=== PATIENT | female | born 1950 | race Caucasian/White ===

== ENCOUNTER 2021-08-04 08:21 | Outpatient (CLI) | payer MEDICARE, OTHER, SELFPAY ==
[2021-08-04 09:25] LABS: Hemoglobin A1C 6.5 % (<5.7)
[2021-08-04 09:34] LABS: Cholesterol 203 mg/dL (0-200); HDL Direct 39 mg/dL (40-60); LDL Cholesterol Calculated 149 mg/dL (<130); Triglycerides 75 mg/dL (0-150)
== END 2021-08-04 08:22 | disposition home or self-care (01) ==
LOC: CHSLAB 08:30
PROVIDERS: PCP Family Medicine
DX: E11.9 Type 2 diabetes mellitus without complications (principal); E78.01 Familial hypercholesterolemia
CPT/HCPCS: 36415; 80061; 83036

== ENCOUNTER 2023-11-22 09:08 | Outpatient (CLI) | payer MEDICARE, SELFPAY ==
[2023-11-22 09:33] LABS: Hematocrit 36.2 % (35.0-42.0); Mean Corpuscular HGB Conc 30.4 g/dL (32-36); Mean Corpuscular Hemoglobin 26.5 pg (27.0-31.0); Mean Corpuscular Volume 87.2 fL (78.0-102.0); Mean Platelet Volume 8.9 fl (9.2-11.8); Platelet Count Result 297 K/mm3 (150-420); Red Blood Count 4.15 M/mm3 (4.20-5.40); Red Cell Distribution Width 14.8 % (11.6-14.4); White Blood Count 6.3 K/mm3 (4.8-10.8)
[2023-11-22 09:52] LABS: Hemoglobin A1C 6.5 % (<5.7)
[2023-11-22 09:53] LABS: Creatinine Urine 294.58 mg/dL (40-278); MALB Creatinine Ratio 29.6 mg/g (0-30); Microalbumin Urine Random 87.4 mg/L
[2023-11-22 10:12] LABS: Alanine Aminotransferase 42 U/L (14-59); Albumin Level 3.3 g/dL (3.4-5.0); Alkaline Phosphatase 83 U/L (46-116); Anion Gap 9 mmol/L (4-12); Aspartate Amino Transferase 43 U/L (15-37); Bilirubin,Total 0.3 mg/dL (0.00-1.00); Blood Urea Nitrogen 26 mg/dL (7-18); Calcium 9.6 mg/dL (8.5-10.1); Carbon Dioxide 26 mmol/L (21-32); Chloride 105 mmol/L (98-108); Cholesterol 328 mg/dL (0-200); Estimated Glomerular Filt Rate 39; Glucose 112 mg/dL (70-99); HDL Direct 34 mg/dL (40-60); LDL Cholesterol Calculated 244 mg/dL (<130); Osmolality Calculated 295 mOsm/kg (285-295); Potassium 5.5 mmol/L (3.5-5.1); Sodium 140 mmol/L (136-145); Triglycerides 250 mg/dL (0-150)
[2023-11-22 10:24] LABS: Thyroid Stimulating Hormone Reflex 5.31 u/IU/mL (0.36-3.74)
[2023-11-22 10:40] LABS: Free T4 Free Thyroxine Reflex 0.89 ng/dL (0.76-1.46)
== END 2023-11-22 09:09 | disposition home or self-care (01) ==
LOC: CHSLAB 09:12
DX: E11.42 Type 2 diabetes mellitus with diabetic polyneuropathy (principal); E78.2 Mixed hyperlipidemia; E11.29 Type 2 diabetes mellitus with other diabetic kidney complication; R80.9 Proteinuria, unspecified; Z79.4 Long term (current) use of insulin
CPT/HCPCS: 36415; 80053; 80061; 82043; 83036; 84439; 84443; 85025; 85027

== ENCOUNTER 2024-04-17 16:21 | Inpatient (IN) | payer MEDICARE, SELFPAY ==
--- NOTE | ~2024-04-17 | XR_ITS ---
EXAMINATION: XR_CERV2-3V_CR DATE: 04/21/2024 11:29 INDICATION: Neck pain. Fall. TECHNIQUE: 4 views of cervical spine were obtained. COMPARISON: None. FINDINGS: Alignment is normal. Vertebral body heights are normal. There is mildly decreased disc heig ht at C4-C5, C5-C6, and C6-C7. 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 No central canal stenosis or prevertebral soft tissue swelling. IMPRESSION: 1. Mild cervical spondylosis. Reviewed, dictated and finalized at location A.
--- NOTE | ~2024-04-17 | XR_ITS ---
EXAMINATION: XR knee RT 3V DATE: 04/24/2024 08:21 INDICATION: Right knee pain and swelling. TECHNIQUE: 3 views of right knee were obtained. COMPARISON: None. FINDINGS: Alignment is normal. No fracture. There is an intramedullary laurie in the femur with distal i nterlocking screw. There is moderate osteoarthritis of medial compartment and mild osteoarthritis of lateral and patellofemoral compartments. No knee joint effusion. IMPRESSION: 1. Moderate right knee osteoarthritis. Reviewed, dictated and finalized at location A.
--- NOTE | 2024-04-17 17:00 | PC.NURSE ---
Patient arrived on unit from [facility] in transport van. Patient arrived to unit in w/c accompanied by nurse and patient's . Patient orientated to room, use of call light, safety measures, use of bed controls, visiting hours, activation of rapid response and general hospital policies. Patient voices understaning.
[2024-04-17 17:07] VITALS: BP 137/54; PULSE 77; RESP 18; TEMP 36.3; O2SAT 94; BMI 37.0
[2024-04-17] MEDS: BUDESONIDE/FORMOTEROL 80/4.5 MCG 6.9 GM INHALER (*SP) 2 PUFF INHALATION (20:35)
[2024-04-17] MEDS: MIRTAZAPINE 15 MG TABLET PO (20:36)
[2024-04-17] MEDS: LOSARTAN POTASSIUM 50 MG TABLET 100 MG PO (20:36)
[2024-04-17] MEDS: SENNA/DOCUSATE SODIUM TABLET 1 TAB PO (20:36)
[2024-04-17 20:40] LABS: Glucose Point of Care 133 mg/dl (65-105)
[2024-04-17] MEDS: HYDROcodone/acetaminophen (*CRX) 5-325 MG TABLET 1 TAB PO (21:18)
[2024-04-18] VITALS: BP 178/71; PULSE 63; RESP 17; TEMP 36.2; O2SAT 97
[2024-04-18] MEDS: HYDROcodone/acetaminophen (*CRX) 5-325 MG TABLET 1 TAB PO ×5 (01:02→13:44)
[2024-04-18] MEDS: BUDESONIDE/FORMOTEROL 80/4.5 MCG 6.9 GM INHALER (*SP) 2 PUFF INHALATION ×2 (05:42→17:51)
[2024-04-18 07:52] LABS: Glucose Point of Care 88 mg/dl (65-105)
[2024-04-18 07:55] LABS: Hematocrit 25.1 % (35.0-42.0); Mean Corpuscular HGB Conc 31.9 g/dL (32-36); Mean Corpuscular Hemoglobin 28.2 pg (27.0-31.0); Mean Corpuscular Volume 88.4 fL (78.0-102.0); Mean Platelet Volume 9.1 fl (9.2-11.8); Platelet Count Result 256 K/mm3 (150-420); Red Blood Count 2.84 M/mm3 (4.20-5.40); White Blood Count 10.2 K/mm3 (4.8-10.8)
[2024-04-18 08:00] VITALS: BP 135/56; PULSE 59; RESP 14; TEMP 35.8; O2SAT 96
[2024-04-18] MEDS: ENOXAPARIN 40 MG/0.4 ML SYRINGE SUB-Q (09:13)
[2024-04-18] MEDS: FLUoxetine HCL 20 MG CAPSULE 40 MG PO (09:13)
[2024-04-18] MEDS: CHOLECALCIFEROL 1,000 UNITS TABLET 1000 UNITS PO (09:13)
[2024-04-18] MEDS: CYANOCOBALAMIN 1,000 MCG TABLET 1000 MCG BY MOUTH (09:13)
[2024-04-18] MEDS: ASPIRIN 81 MG CHEWABLE TABLET PO (09:14)
[2024-04-18] MEDS: LEVOTHYROXINE SODIUM 50 MCG TABLET PO (09:14)
[2024-04-18] MEDS: amLODIPine BESYLATE 5 MG TABLET PO (09:14)
[2024-04-18 12:08] LABS: Glucose Point of Care 117 mg/dl (65-105)
--- NOTE | 2024-04-18 15:57 | PM.IMHP ---
H&P: HPI History of Present Illness Date/Time: 04/18/24 15:57 Chief Complaint: weakness, deconditioning Narrative: This is a 74-year-old female with a past medical history significant for breast cancer status post double mastectomy on oral chemotherapy, diabetes type 2, hypertension, hyperlipidemia, and anxiety who presented to [facility] for swing bed services. The patient provides the following history. Last Saturday she was out to dinner with her family when she stood up and fell to the floor. She immediately had right hip pain and 911 was called. She was taken to [facility] in [facility] and found to have a right intratrochanteric fracture. She underwent right hip long CM nail on 04/[address] North. stay was complicated by acute hypoxic respiratory failure likely secondary to an asthma exacerbation versus pulmonary hypertension. She was eventually able to be weaned to room air and discharged for further PT and OT given deconditioning, weakness, and impaired immobility. On exam today she is seen in the chair and appears uncomfortable. She states she is having pain to her right leg to the right of her knee. Her current pain medication helps but it does not last. She denies headache, dizziness, chest pain, abdominal pain, nausea, vomiting, diarrhea, or constipation. She does have shortness of breath chronically which she has been experiencing for the last 2-3 months. She does not normally wear oxygen at home and currently is not requiring oxygen. Review of Systems Review of Systems: shortness a breath, right hip pain All systems reviewed & are unremarkable except as noted in HPI and below PMFSH Past Medical History Medical History (Updated 04/18/24 @ 16:29 by Katia Rao APRN) Breast cancer Closed right hip fracture Diabetes type 2, controlled Hyperlipidemia Hypertension Osteopenia Pulmonary hypertension Surgical History Surgical History H/O mastectomy History of hysterectomy History of repair of hiatal hernia Hx of tonsillectomy Family History Family History Other Diabetes mellitus Heart disease Social History Social History (Updated 04/18/24 @ 16:16 by Katia Rao APRN) Social History: patient lives at home with her Jacob Deleon who is her emergency contact. She has 2 children, 1 is from breast cancer. She has helped to raise her 2 grandchildren 1 being a freshman in college and the other a freshman in high school. She lives here in [facility]. Smoking status: Never smoker Second hand tobacco smoke exposure: No Alcohol intake: former Substance use: never Substance use type: does not use Do You Feel Safe in your Home?: Yes Lack of Transportation: No Lack of Food: Never True Current Housing: I Have Housing Concerned About Future Housing: No Difficulty Paying Gas/Electric Bills: No Difficulty Paying for Meds: YES Currently Unemployed: No Education: Master's Degree or Higher Difficulty w/ Childcare or Family Care: No Living arrangements: with family Spiritual care concerns: No Meds Home Medications and Allergies Home Medications Medication Instructions Recorded Confirmed Type amlodipine 5 mg tablet 5 mg PO DAILY 04/17/24 04/17/24 History aspirin 81 mg tablet 81 mg PO DAILY 04/17/24 04/17/24 History budesonide-formoterol HFA 80 2 puff inhalation Q12H 04/17/24 04/17/24 History mcg-4.5 mcg/actuation aerosol inhaler cholecalciferol (vitamin D3) 25 25 mcg PO DAILY 04/17/24 04/17/24 History mcg (1,000 unit) tablet cyanocobalamin (vitamin B-12) 1,000 mcg sublingual DAILY 04/17/24 04/17/24 History 1,000 mcg sublingual tablet enoxaparin 40 mg/0.4 mL 40 mg subcut DAILY 04/17/24 04/17/24 History subcutaneous syringe (Lovenox) fluoxetine 40 mg capsule 40 mg
[2024-04-18 16:30] VITALS: BP 126/56; PULSE 64; RESP 16; TEMP 36.1; O2SAT 94
[2024-04-18 16:51] LABS: Glucose Point of Care 123 mg/dl (65-105)
[2024-04-18] MEDS: HYDROcodone/acetaminophen (*CRX) 5-325 MG TABLET PO (17:49)
[2024-04-18] MEDS: LOSARTAN POTASSIUM 50 MG TABLET 100 MG PO (20:24)
[2024-04-18] MEDS: MIRTAZAPINE 15 MG TABLET PO (20:24)
[2024-04-18] MEDS: SENNA/DOCUSATE SODIUM TABLET 1 TAB PO (20:24)
[2024-04-18 20:41] LABS: Glucose Point of Care 127 mg/dl (65-105)
[2024-04-19] VITALS: BP 141/60; PULSE 69; RESP 18; TEMP 35.8; O2SAT 94
[2024-04-19] MEDS: HYDROcodone/acetaminophen (*CRX) 5-325 MG TABLET PO ×4 (05:57→19:22)
[2024-04-19] MEDS: LEVOTHYROXINE SODIUM 50 MCG TABLET PO (05:57)
[2024-04-19] MEDS: BUDESONIDE/FORMOTEROL 80/4.5 MCG 6.9 GM INHALER (*SP) 2 PUFF INHALATION ×2 (05:59→18:13)
[2024-04-19 07:53] LABS: Glucose Point of Care 131 mg/dl (65-105)
[2024-04-19 08:00] VITALS: BP 141/60; PULSE 66; RESP 14; TEMP 36.4; O2SAT 92
[2024-04-19] MEDS: ENOXAPARIN 40 MG/0.4 ML SYRINGE SUB-Q (09:06)
[2024-04-19] MEDS: FLUoxetine HCL 20 MG CAPSULE 40 MG PO (09:07)
[2024-04-19] MEDS: CHOLECALCIFEROL 1,000 UNITS TABLET 1000 UNITS PO (09:07)
[2024-04-19] MEDS: ASPIRIN 81 MG CHEWABLE TABLET PO (09:07)
[2024-04-19] MEDS: amLODIPine BESYLATE 5 MG TABLET PO (09:07)
[2024-04-19] MEDS: LETROZOLE (*CHEMO) 2.5 MG TABLET PO (09:09)
[2024-04-19] MEDS: CYANOCOBALAMIN 1,000 MCG TABLET 1000 MCG BY MOUTH (09:25)
[2024-04-19 12:02] LABS: Glucose Point of Care 144 mg/dl (65-105)
[2024-04-19 16:45] VITALS: BP 128/56; PULSE 78; RESP 16; TEMP 36.4; O2SAT 93
[2024-04-19 17:13] LABS: Glucose Point of Care 112 mg/dl (65-105)
[2024-04-19] MEDS: CYCLOBENZAPRINE HCL 10 MG TABLET PO (20:49)
[2024-04-19] MEDS: MIRTAZAPINE 15 MG TABLET PO (20:49)
[2024-04-19] MEDS: LOSARTAN POTASSIUM 50 MG TABLET 100 MG PO (20:49)
[2024-04-19] MEDS: SENNA/DOCUSATE SODIUM TABLET 1 TAB PO (20:49)
[2024-04-19 21:18] LABS: Glucose Point of Care 180 mg/dl (65-105)
[2024-04-19 23:47] VITALS: BP 149/56; PULSE 70; RESP 18; TEMP 36.5; O2SAT 93
[2024-04-20] MEDS: HYDROcodone/acetaminophen (*CRX) 5-325 MG TABLET PO ×5 (04:16→22:37)
[2024-04-20] MEDS: LEVOTHYROXINE SODIUM 50 MCG TABLET PO (06:00)
[2024-04-20] MEDS: BUDESONIDE/FORMOTEROL 80/4.5 MCG 6.9 GM INHALER (*SP) 2 PUFF INHALATION ×2 (06:00→18:20)
[2024-04-20 07:00] LABS: Hematocrit 27.2 % (35.0-42.0); Hemoglobin 8.6 g/dL (11.7-13.8); Mean Corpuscular HGB Conc 31.6 g/dL (32-36); Mean Corpuscular Hemoglobin 28.7 pg (27.0-31.0); Mean Corpuscular Volume 90.7 fL (78.0-102.0); Mean Platelet Volume 9.2 fl (9.2-11.8); Platelet Count Result 300 K/mm3 (150-420); Red Cell Distribution Width 16.1 % (11.6-14.4); White Blood Count 9.4 K/mm3 (4.8-10.8)
[2024-04-20 07:21] LABS: Alanine Aminotransferase 48 U/L (14-59); Albumin Level 2.9 g/dL (3.4-5.0); Alkaline Phosphatase 68 U/L (46-116); Anion Gap 4 mmol/L (4-12); Aspartate Amino Transferase 30 U/L (15-37); Bilirubin,Total 1.1 mg/dL (0.00-1.00); Blood Urea Nitrogen 20 mg/dL (7-18); Calcium 9.3 mg/dL (8.5-10.1); Carbon Dioxide 30 mmol/L (21-32); Chloride 104 mmol/L (98-108); Estimated CRCL calculation 44 ml/min; Estimated Glomerular Filt Rate 46; Glucose 122 mg/dL (70-99); Osmolality Calculated 289 mOsm/kg (285-295); Potassium 4.2 mmol/L (3.5-5.1); Sodium 138 mmol/L (136-145); Total Protein 6.7 g/dL (6.4-8.2)
[2024-04-20 07:50] LABS: Glucose Point of Care 127 mg/dl (65-105)
[2024-04-20 08:00] VITALS: BP 150/54; PULSE 72; RESP 14; TEMP 36.6; O2SAT 98
[2024-04-20] MEDS: amLODIPine BESYLATE 5 MG TABLET PO (08:55)
[2024-04-20] MEDS: ASPIRIN 81 MG CHEWABLE TABLET PO (08:55)
[2024-04-20] MEDS: CHOLECALCIFEROL 1,000 UNITS TABLET 1000 UNITS PO (08:55)
[2024-04-20] MEDS: FLUoxetine HCL 20 MG CAPSULE 40 MG PO (08:55)
[2024-04-20] MEDS: ENOXAPARIN 40 MG/0.4 ML SYRINGE SUB-Q (08:55)
[2024-04-20] MEDS: CYANOCOBALAMIN 1,000 MCG TABLET 1000 MCG BY MOUTH (08:56)
[2024-04-20] MEDS: LETROZOLE (*CHEMO) 2.5 MG TABLET PO (08:56)
--- NOTE | 2024-04-20 10:39 | PHAR ---
verified pt.'s home med letrozole 2.5mg tablet once daily. marked it as hazardous drug.
[2024-04-20 11:58] LABS: Glucose Point of Care 163 mg/dl (65-105)
[2024-04-20 16:00] VITALS: BP 129/54; PULSE 81; RESP 16; TEMP 36.5; O2SAT 95
[2024-04-20 16:59] LABS: Glucose Point of Care 111 mg/dl (65-105)
[2024-04-20] MEDS: MIRTAZAPINE 15 MG TABLET PO (20:26)
[2024-04-20] MEDS: SENNA/DOCUSATE SODIUM TABLET 1 TAB PO (20:27)
[2024-04-20] MEDS: LOSARTAN POTASSIUM 50 MG TABLET 100 MG PO (20:27)
[2024-04-20 20:36] LABS: Glucose Point of Care 145 mg/dl (65-105)
[2024-04-20] MEDS: CYCLOBENZAPRINE HCL 10 MG TABLET PO (22:38)
[2024-04-21] VITALS: BP 136/64; PULSE 87; RESP 18; TEMP 37.3; O2SAT 90
[2024-04-21] MEDS: LEVOTHYROXINE SODIUM 50 MCG TABLET PO (06:45)
[2024-04-21] MEDS: HYDROcodone/acetaminophen (*CRX) 5-325 MG TABLET PO ×4 (06:45→22:15)
[2024-04-21] MEDS: BUDESONIDE/FORMOTEROL 80/4.5 MCG 6.9 GM INHALER (*SP) 2 PUFF INHALATION ×2 (06:47→18:08)
[2024-04-21 07:28] LABS: Glucose Point of Care 110 mg/dl (65-105)
[2024-04-21 07:47] VITALS: BP 122/54; PULSE 70; RESP 16; TEMP 36; O2SAT 90
[2024-04-21] MEDS: ENOXAPARIN 40 MG/0.4 ML SYRINGE SUB-Q (08:48)
[2024-04-21] MEDS: LETROZOLE (*CHEMO) 2.5 MG TABLET PO (08:49)
[2024-04-21] MEDS: CHOLECALCIFEROL 1,000 UNITS TABLET 1000 UNITS PO (08:50)
[2024-04-21] MEDS: FLUoxetine HCL 20 MG CAPSULE 40 MG PO (08:50)
[2024-04-21] MEDS: amLODIPine BESYLATE 5 MG TABLET PO (08:51)
[2024-04-21] MEDS: ASPIRIN 81 MG CHEWABLE TABLET PO (08:51)
[2024-04-21] MEDS: CYANOCOBALAMIN 1,000 MCG TABLET 1000 MCG BY MOUTH (08:51)
--- NOTE | 2024-04-21 10:32 | PM.EVENT ---
Event Note Event Note Event Note: Patient complaining of neck or uper back neck pain . Not sure if its from the fall but it is hurting when she turns her head. I will place an xray order and if negative we will order a lidocaine patch.
[2024-04-21 11:49] LABS: Glucose Point of Care 92 mg/dl (65-105)
--- NOTE | 2024-04-21 12:44 | P.PNCROSS_ITS ---
Event Note Event Note Event Note: Patient has poor endurance and high risk for fall due to dementia and would carli efit from the use of Walker to help with abnormal gait and balance.
[2024-04-21] MEDS: CYCLOBENZAPRINE HCL 10 MG TABLET PO ×2 (13:03→22:15)
[2024-04-21 16:00] VITALS: BP 133/61; PULSE 80; RESP 18; TEMP 36.2; O2SAT 96
--- NOTE | 2024-04-21 18:50 | PC.NURSE ---
assumed care. report received from amanda tony
[2024-04-21] MEDS: SENNA/DOCUSATE SODIUM TABLET 1 TAB PO (20:31)
[2024-04-21] MEDS: MIRTAZAPINE 15 MG TABLET PO (20:31)
[2024-04-21] MEDS: LOSARTAN POTASSIUM 50 MG TABLET 100 MG PO (20:31)
--- NOTE | 2024-04-21 23:58 | PC.NURSE ---
Sleeping with no signs of distress. BiPap tubing lying on patient chest.
[2024-04-22] VITALS: BP 125/55; PULSE 72; RESP 16; TEMP 35.9; O2SAT 96
--- NOTE | 2024-04-22 02:11 | PC.NURSE ---
Up to BSC; Incontinent of urine into underwear and on floor. Housekeeping notified and cleaned floor. New safety socks provided.
[2024-04-22] MEDS: HYDROcodone/acetaminophen (*CRX) 5-325 MG TABLET PO ×4 (02:20→20:55)
--- NOTE | 2024-04-22 02:20 | PC.NURSE ---
Given fresh ice pack; applied to R posterior hip area.
[2024-04-22] MEDS: BUDESONIDE/FORMOTEROL 80/4.5 MCG 6.9 GM INHALER (*SP) 2 PUFF INHALATION ×2 (06:13→18:40)
[2024-04-22] MEDS: LEVOTHYROXINE SODIUM 50 MCG TABLET PO (06:14)
--- NOTE | 2024-04-22 06:36 | PC.NURSE ---
Up to BSC, explained to patient that she will be walking to bathroom as determined by PT. patient is agreeable. Walked to recliner with steady gait with walker and standby assist of one. Positioned in recliner with legs elevated and warm blanket provided. Given call light, water and cell phone.
[2024-04-22 08:00] VITALS: BP 135/50; PULSE 78; RESP 14; TEMP 36.4; O2SAT 96
[2024-04-22] MEDS: CYANOCOBALAMIN 1,000 MCG TABLET 1000 MCG BY MOUTH (08:51)
[2024-04-22] MEDS: FLUoxetine HCL 20 MG CAPSULE 40 MG PO (08:51)
[2024-04-22] MEDS: CHOLECALCIFEROL 1,000 UNITS TABLET 1000 UNITS PO (08:51)
[2024-04-22] MEDS: LETROZOLE (*CHEMO) 2.5 MG TABLET PO (08:51)
[2024-04-22] MEDS: ASPIRIN 81 MG CHEWABLE TABLET PO (08:52)
[2024-04-22] MEDS: ENOXAPARIN 40 MG/0.4 ML SYRINGE SUB-Q (08:52)
[2024-04-22] MEDS: amLODIPine BESYLATE 5 MG TABLET PO (08:52)
--- NOTE | 2024-04-22 10:04 | PM.EVENT ---
Event Note Event Note Event Note: reviewed patient xray and she has no acute process. patient will utilize patch.
[2024-04-22] MEDS: LIDOCAINE 5% PATCH 1 PATCH TRANSDERM (11:19)
[2024-04-22 16:00] VITALS: BP 134/74; PULSE 78; RESP 29; TEMP 36.1; O2SAT 92
[2024-04-22] MEDS: CYCLOBENZAPRINE HCL 10 MG TABLET PO (17:12)
[2024-04-22] MEDS: MIRTAZAPINE 15 MG TABLET PO (20:54)
[2024-04-22] MEDS: SENNA/DOCUSATE SODIUM TABLET 1 TAB PO (20:54)
[2024-04-22] MEDS: LOSARTAN POTASSIUM 50 MG TABLET 100 MG PO (20:54)
[2024-04-23] VITALS: BP 128/57; PULSE 91; RESP 16; TEMP 36.4; O2SAT 93
[2024-04-23] MEDS: HYDROcodone/acetaminophen (*CRX) 5-325 MG TABLET PO ×4 (05:40→20:44)
[2024-04-23] MEDS: BUDESONIDE/FORMOTEROL 80/4.5 MCG 6.9 GM INHALER (*SP) 2 PUFF INHALATION ×2 (05:41→17:12)
[2024-04-23] MEDS: LEVOTHYROXINE SODIUM 50 MCG TABLET PO (05:41)
[2024-04-23 08:00] VITALS: BP 114/53; PULSE 75; RESP 14; TEMP 36.6; O2SAT 96
[2024-04-23] MEDS: LIDOCAINE 5% PATCH 1 PATCH TRANSDERM (08:55)
[2024-04-23] MEDS: ENOXAPARIN 40 MG/0.4 ML SYRINGE SUB-Q (08:56)
[2024-04-23] MEDS: CYANOCOBALAMIN 1,000 MCG TABLET 1000 MCG BY MOUTH (08:56)
[2024-04-23] MEDS: CHOLECALCIFEROL 1,000 UNITS TABLET 1000 UNITS PO (08:56)
[2024-04-23] MEDS: FLUoxetine HCL 20 MG CAPSULE 40 MG PO (08:56)
[2024-04-23] MEDS: ASPIRIN 81 MG CHEWABLE TABLET PO (08:57)
[2024-04-23] MEDS: amLODIPine BESYLATE 5 MG TABLET PO (08:57)
[2024-04-23] MEDS: LETROZOLE (*CHEMO) 2.5 MG TABLET PO (08:57)
--- NOTE | 2024-04-23 09:09 | PM.EVENT ---
Event Note Event Note Event Note: Patient with no complaints up in chair doing well and neck pain improved with lidocaine patch
--- NOTE | 2024-04-23 09:59 | P.PNCROSS_ITS ---
Event Note Event Note Event Note: (1) Closed right hip fracture: Code(s): S72.001A - Fracture of unspecified part of neck of right femur, initial encounter for closed fracture Patient is a 74-year-old female who had initially been admitted to [facility] bed for rehabilitation and continued PT OT. Patient continues to improve however still with unsteady gait and pain with movement following a fracture to right femur. At this time it is my recommendation that the patient would benefit from a walker at home to continue her physical therapy and rehabilitation due to unsteady gait and balance and to reduce patient risk of falls after returning home.
[2024-04-23] MEDS: CYCLOBENZAPRINE HCL 10 MG TABLET PO ×2 (10:18→20:44)
[2024-04-23 16:30] VITALS: BP 107/73; PULSE 78; RESP 16; TEMP 36.3; O2SAT 96
[2024-04-23] MEDS: LOSARTAN POTASSIUM 50 MG TABLET 100 MG PO (20:44)
[2024-04-23] MEDS: MIRTAZAPINE 15 MG TABLET PO (20:44)
[2024-04-23] MEDS: SENNA/DOCUSATE SODIUM TABLET 1 TAB PO (20:45)
[2024-04-24] VITALS: BP 112/91; PULSE 84; RESP 16; TEMP 36.4; O2SAT 94
[2024-04-24] MEDS: LEVOTHYROXINE SODIUM 50 MCG TABLET PO (05:59)
[2024-04-24] MEDS: HYDROcodone/acetaminophen (*CRX) 5-325 MG TABLET PO ×4 (05:59→20:23)
[2024-04-24] MEDS: BUDESONIDE/FORMOTEROL 80/4.5 MCG 6.9 GM INHALER (*SP) 2 PUFF INHALATION ×2 (05:59→18:03)
[2024-04-24 08:00] VITALS: BP 123/52; PULSE 75; RESP 14; TEMP 36.4; O2SAT 96
[2024-04-24] MEDS: ENOXAPARIN 40 MG/0.4 ML SYRINGE SUB-Q (09:20)
[2024-04-24] MEDS: amLODIPine BESYLATE 5 MG TABLET PO (09:21)
[2024-04-24] MEDS: CHOLECALCIFEROL 1,000 UNITS TABLET 1000 UNITS PO (09:21)
[2024-04-24] MEDS: ASPIRIN 81 MG CHEWABLE TABLET PO (09:21)
[2024-04-24] MEDS: FLUoxetine HCL 20 MG CAPSULE 40 MG PO (09:21)
[2024-04-24] MEDS: LIDOCAINE 5% PATCH 1 PATCH TRANSDERM (09:21)
[2024-04-24] MEDS: CYANOCOBALAMIN 1,000 MCG TABLET 1000 MCG BY MOUTH (09:21)
[2024-04-24] MEDS: LETROZOLE (*CHEMO) 2.5 MG TABLET PO (09:22)
--- NOTE | 2024-04-24 14:21 | PM.EVENT ---
Event Note Event Note Event Note: Patient reported RT knee pain after working with physical therapy yesterday and states she felt a pop. XRAY ordered that showed osteoarthritis. Encouraged RICE and pain control as needed.
[2024-04-24 16:35] VITALS: BP 121/55; PULSE 81; RESP 16; TEMP 36.7; O2SAT 92
[2024-04-24 19:57] VITALS: BP 108/57; PULSE 88; RESP 18; TEMP 36.8; O2SAT 95
[2024-04-24] MEDS: LOSARTAN POTASSIUM 50 MG TABLET 100 MG PO (20:24)
[2024-04-24] MEDS: SENNA/DOCUSATE SODIUM TABLET 1 TAB PO (20:24)
[2024-04-24] MEDS: MIRTAZAPINE 15 MG TABLET PO (20:24)
[2024-04-25] MEDS: HYDROcodone/acetaminophen (*CRX) 5-325 MG TABLET PO ×6 (00:32→21:28)
[2024-04-25 05:27] LABS: Hematocrit 25.7 % (35.0-42.0); Hemoglobin 7.8 g/dL (11.7-13.8); Mean Corpuscular HGB Conc 30.4 g/dL (32-36); Mean Corpuscular Hemoglobin 28.1 pg (27.0-31.0); Mean Corpuscular Volume 92.4 fL (78.0-102.0); Mean Platelet Volume 8.9 fl (9.2-11.8); Platelet Count Result 252 K/mm3 (150-420); Red Blood Count 2.78 M/mm3 (4.20-5.40); Red Cell Distribution Width 16.9 % (11.6-14.4); White Blood Count 6.2 K/mm3 (4.8-10.8)
[2024-04-25 05:40] LABS: Alanine Aminotransferase 30 U/L (14-59); Albumin Level 2.8 g/dL (3.4-5.0); Alkaline Phosphatase 75 U/L (46-116); Anion Gap 6 mmol/L (4-12); Aspartate Amino Transferase 25 U/L (15-37); Bilirubin,Total 0.6 mg/dL (0.00-1.00); Blood Urea Nitrogen 29 mg/dL (7-18); Calcium 9.6 mg/dL (8.5-10.1); Carbon Dioxide 29 mmol/L (21-32); Chloride 102 mmol/L (98-108); Estimated CRCL calculation 38 ml/min; Estimated Glomerular Filt Rate 39; Glucose 115 mg/dL (70-99); Osmolality Calculated 290 mOsm/kg (285-295); Sodium 137 mmol/L (136-145); Total Protein 6.9 g/dL (6.4-8.2)
[2024-04-25] MEDS: LEVOTHYROXINE SODIUM 50 MCG TABLET PO (06:25)
[2024-04-25] MEDS: BUDESONIDE/FORMOTEROL 80/4.5 MCG 6.9 GM INHALER (*SP) 2 PUFF INHALATION ×2 (06:25→18:06)
[2024-04-25 08:00] VITALS: BP 116/62; PULSE 86; RESP 18; TEMP 36.6; O2SAT 95
--- NOTE | 2024-04-25 08:03 | P.PNIM_ITS ---
Progress Note: A&P Assessment and Plan (1) Closed right hip fracture: Code(s): S72.001A - Fracture of unspecified part of neck of right femur, initial encounter for closed fracture Status: Acute Assessment and Plan: * patient sustained a right hip fracture after standing up at dinner and falling to the ground. She was transferred to [facility] and underwent IM nail on 04/11. She is sent to [facility] for swing bed for continued PT and OT due to deconditioning, weakness, and gait training. * Incision is covered with to Mepilex dressings clean dry and intact. Change dressing every 3 days or as needed for drainage. * DVT prophylaxis with Lovenox daily for 25 days * pain control with oxycodone 5-10 mg every 4 hours as needed for pain. * Flexeril 10 mg t.i.d. as needed for muscle spasm * bowel regimen with senna daily and MiraLax p.r.n. * patient needs to follow-up with Dr. North by 05/01 * PT OT ordered and recs are appreciated 04/25/24: * Continues to improve with current treatment plan (2) Osteoarthritis of right knee: Code(s): M17.11 - Unilateral primary osteoarthritis, right knee Status: Acute Assessment and Plan: * RT Knee pain * XRAY showed osteoarthritis * added Voltaren * continue with PT/OT (3) Constipation: Code(s): K59.00 - Constipation, unspecified Status: Acute Assessment and Plan: * No BM 3 days * likely secondary to narcotics * Currently on Colace and senna tab as well as MiraLax p.r.n. * added lactulose until patient has BM then can discontinue * encouraged ambulation in hydration (4) Hypertension: Code(s): I10 - Essential (primary) hypertension Status: Acute Assessment and Plan: * history of high blood pressure for which patient takes amlodipine 5 mg daily, losartan 100 mg daily * blood pressures reviewed and are within desired limits * continue home antihypertensives * echocardiogram performed at [facility] showed normal LV diastolic and systolic function with an EF estimated at 68.1% and trace tricuspid regurgitation. Non con CT of the chest showed pattern concerning for advanced pulmonary hypertension including prominent enlargement of pulmonary arteries as well as pulmonary veins. (5) Diabetes type 2, controlled: Code(s): E11.9 - Type 2 diabetes mellitus without complications Status: Acute Assessment and Plan: * Patient takes sitagliptin 50 mg daily, hemoglobin A1c 6.5% in November of 2023 * arnulfo Mccabeu-Chepaige, hypoglycemia protocol * high-dose SSI * patient has not required sliding scale insulin since admission * diabetic diet (6) Breast cancer: Code(s): C50.919 - Malignant neoplasm of unspecified site of unspecified female breast Status: Acute Assessment and Plan: * patient has a history of breast cancer with a double mastectomy completed in August of this year. she recently started oral chemotherapy letrozole 2.5 mg daily. * Medication is
--- NOTE | 2024-04-25 08:03 | PM.IMPN ---
Progress Note: A&P Assessment and Plan (1) Closed right hip fracture: Code(s): S72.001A - Fracture of unspecified part of neck of right femur, initial encounter for closed fracture Status: Acute Assessment and Plan: patient sustained a right hip fracture after standing up at dinner and falling to the ground. She was transferred to [facility] and underwent IM nail on 04/11. She is sent to [facility] for swing bed for continued PT and OT due to deconditioning, weakness, and gait training. Incision is covered with to Mepilex dressings clean dry and intact. Change dressing every 3 days or as needed for drainage. DVT prophylaxis with Lovenox daily for 25 days pain control with oxycodone 5-10 mg every 4 hours as needed for pain. Flexeril 10 mg t.i.d. as needed for muscle spasm bowel regimen with senna daily and MiraLax p.r.n. patient needs to follow-up with Dr. North by 05/01 PT OT ordered and recs are appreciated 04/25/24: Continues to improve with current treatment plan (2) Osteoarthritis of right knee: Code(s): M17.11 - Unilateral primary osteoarthritis, right knee Status: Acute Assessment and Plan: RT Knee pain XRAY showed osteoarthritis added Voltaren continue with PT/OT (3) Constipation: Code(s): K59.00 - Constipation, unspecified Status: Acute Assessment and Plan: No BM 3 days likely secondary to narcotics Currently on Colace and senna tab as well as MiraLax p.r.n. added lactulose until patient has BM then can discontinue encouraged ambulation in hydration (4) Hypertension: Code(s): I10 - Essential (primary) hypertension Status: Acute Assessment and Plan: history of high blood pressure for which patient takes amlodipine 5 mg daily, losartan 100 mg daily blood pressures reviewed and are within desired limits continue home antihypertensives echocardiogram performed at [place] showed normal LV diastolic and systolic function with an EF estimated at 68.1% and trace tricuspid regurgitation. Non con CT of the chest showed pattern concerning for advanced pulmonary hypertension including prominent enlargement of pulmonary arteries as well as pulmonary veins. (5) Diabetes type 2, controlled: Code(s): E11.9 - Type 2 diabetes mellitus without complications Status: Acute Assessment and Plan: Patient takes sitagliptin 50 mg daily, hemoglobin A1c 6.5% in November of 2023 a.c. HS Accu-Cheks, hypoglycemia protocol high-dose SSI patient has not required sliding scale insulin since admission diabetic diet (6) Breast cancer: Code(s): C50.919 - Malignant neoplasm of unspecified site of unspecified female breast Status: Acute Assessment and Plan: patient has a history of breast cancer with a double mastectomy completed in August of this year. she recently started oral chemotherapy letrozole 2.5 mg daily. Medication is non formulary. her is bringing in this medication. Okay to resume when available. (7) Asthma: Code(s): J45.909 - Unspecified asthma, uncomplicated Status: Acute Assessment and Plan: patient takes budesonide -formoterol 2 b.i.d. she had hypoxic respiratory failure after surgery requiring ICU stay with oxygen. Resume inhaler currently on room air BiPAP at night inspiratory pressure 14, EPAP 8. she was on these settings at [facility]. Likely has JOELLE will need outpatient sleep study. Plan Code status: Full code per patient DVT prophylaxis: Lovenox Stress ulcer prophylaxis: NA PT/OT notes: Swing Bed Disposition: patient continues admission to [facility] swing bed for rehabilitation due to recent hospital admission and deconditioned state. Patient is slowly improving hopefully plan for discharge to home soon Time Spent With Patient T
[2024-04-25] MEDS: ENOXAPARIN 40 MG/0.4 ML SYRINGE SUB-Q (08:43)
[2024-04-25] MEDS: LIDOCAINE 5% PATCH 1 PATCH TRANSDERM (08:43)
[2024-04-25] MEDS: CYANOCOBALAMIN 1,000 MCG TABLET 1000 MCG BY MOUTH (08:44)
[2024-04-25] MEDS: CHOLECALCIFEROL 1,000 UNITS TABLET 1000 UNITS PO (08:44)
[2024-04-25] MEDS: amLODIPine BESYLATE 5 MG TABLET PO (08:44)
[2024-04-25] MEDS: ASPIRIN 81 MG CHEWABLE TABLET PO (08:44)
[2024-04-25] MEDS: FLUoxetine HCL 20 MG CAPSULE 40 MG PO (08:44)
[2024-04-25] MEDS: LETROZOLE (*CHEMO) 2.5 MG TABLET PO (08:47)
[2024-04-25] MEDS: LACTULOSE 20 GM/30 ML UDC PO ×2 (12:06→17:07)
[2024-04-25] MEDS: DICLOFENAC SODIUM 1% 100 GM GEL (*BKC) 1 APPLIC TOPICAL ×3 (12:06→21:28)
[2024-04-25] MEDS: CYCLOBENZAPRINE HCL 10 MG TABLET PO ×2 (15:25→23:38)
[2024-04-25 16:00] VITALS: BP 134/72; PULSE 84; RESP 18; TEMP 36.6; O2SAT 93
--- NOTE | 2024-04-25 19:14 | PC.NURSE ---
Patient had results from lactulose, order discontinued per VACUUM CASTER, patient states understanding.
[2024-04-25] MEDS: MIRTAZAPINE 15 MG TABLET PO (21:30)
[2024-04-25] MEDS: LOSARTAN POTASSIUM 50 MG TABLET 100 MG PO (21:30)
[2024-04-26] VITALS: BP 122/55; PULSE 78; RESP 16; TEMP 36.6; O2SAT 93
[2024-04-26] MEDS: BUDESONIDE/FORMOTEROL 80/4.5 MCG 6.9 GM INHALER (*SP) 2 PUFF INHALATION ×2 (06:32→17:36)
[2024-04-26] MEDS: HYDROcodone/acetaminophen (*CRX) 5-325 MG TABLET PO ×2 (06:33→20:08)
[2024-04-26] MEDS: LEVOTHYROXINE SODIUM 50 MCG TABLET PO (06:33)
[2024-04-26 08:00] VITALS: BP 125/49; PULSE 74; RESP 16; TEMP 36.4; O2SAT 96
[2024-04-26] MEDS: amLODIPine BESYLATE 5 MG TABLET PO (08:59)
[2024-04-26] MEDS: ASPIRIN 81 MG CHEWABLE TABLET PO (09:01)
[2024-04-26] MEDS: CHOLECALCIFEROL 1,000 UNITS TABLET 1000 UNITS PO (09:01)
[2024-04-26] MEDS: LIDOCAINE 5% PATCH 1 PATCH TRANSDERM (09:02)
[2024-04-26] MEDS: FLUoxetine HCL 20 MG CAPSULE 40 MG PO (09:02)
[2024-04-26] MEDS: ENOXAPARIN 40 MG/0.4 ML SYRINGE SUB-Q (09:02)
[2024-04-26] MEDS: CYANOCOBALAMIN 1,000 MCG TABLET 1000 MCG BY MOUTH (09:02)
[2024-04-26] MEDS: DICLOFENAC SODIUM 1% 100 GM GEL (*BKC) 1 APPLIC TOPICAL ×4 (09:04→20:08)
[2024-04-26] MEDS: LETROZOLE (*CHEMO) 2.5 MG TABLET PO (09:08)
[2024-04-26 16:00] VITALS: BP 139/52; PULSE 77; RESP 18; TEMP 36.6; O2SAT 94
[2024-04-26] MEDS: CYCLOBENZAPRINE HCL 10 MG TABLET PO (17:49)
[2024-04-26 20:00] VITALS: PULSE 77; RESP 18; O2SAT 94
[2024-04-26] MEDS: MIRTAZAPINE 15 MG TABLET PO (20:08)
[2024-04-26] MEDS: SENNA/DOCUSATE SODIUM TABLET 1 TAB PO (20:08)
[2024-04-26] MEDS: LOSARTAN POTASSIUM 50 MG TABLET 100 MG PO (20:08)
[2024-04-27] VITALS: BP 128/57; PULSE 85; RESP 17; TEMP 36.8; O2SAT 96
[2024-04-27] MEDS: HYDROcodone/acetaminophen (*CRX) 5-325 MG TABLET PO ×2 (03:47→08:54)
[2024-04-27] MEDS: CYCLOBENZAPRINE HCL 10 MG TABLET PO (03:47)
[2024-04-27] MEDS: BUDESONIDE/FORMOTEROL 80/4.5 MCG 6.9 GM INHALER (*SP) 2 PUFF INHALATION (05:46)
[2024-04-27] MEDS: LEVOTHYROXINE SODIUM 50 MCG TABLET PO (05:46)
[2024-04-27 07:50] VITALS: BP 140/59; PULSE 70; RESP 16; TEMP 35.7; O2SAT 97
[2024-04-27] MEDS: LIDOCAINE 5% PATCH 1 PATCH TRANSDERM (08:54)
[2024-04-27] MEDS: ENOXAPARIN 40 MG/0.4 ML SYRINGE SUB-Q (08:54)
[2024-04-27] MEDS: FLUoxetine HCL 20 MG CAPSULE 40 MG PO (08:55)
[2024-04-27] MEDS: CYANOCOBALAMIN 1,000 MCG TABLET 1000 MCG BY MOUTH (08:55)
[2024-04-27] MEDS: amLODIPine BESYLATE 5 MG TABLET PO (08:55)
[2024-04-27] MEDS: DICLOFENAC SODIUM 1% 100 GM GEL (*BKC) 1 APPLIC TOPICAL (08:56)
[2024-04-27] MEDS: CHOLECALCIFEROL 1,000 UNITS TABLET 1000 UNITS PO (08:56)
[2024-04-27] MEDS: ASPIRIN 81 MG CHEWABLE TABLET PO (08:56)
[2024-04-27] MEDS: LETROZOLE (*CHEMO) 2.5 MG TABLET PO (08:56)
--- NOTE | 2024-04-27 09:22 | PM.DS ---
DS: Admitting Diagnosis Discharge Date 04/27/2024 Admitting Diagnosis Post repair of right hip fracture/ rehabilitation DS: Discharge Diagnosis Discharge Diagnosis (1) Closed right hip fracture: Code(s): S72.001A - Fracture of unspecified part of neck of right femur, initial encounter for closed fracture Status: Acute (2) Osteoarthritis of right knee: Code(s): M17.11 - Unilateral primary osteoarthritis, right knee Status: Acute (3) Constipation: Code(s): K59.00 - Constipation, unspecified Status: Acute (4) Hypertension: Code(s): I10 - Essential (primary) hypertension Status: Acute (5) Diabetes type 2, controlled: Code(s): E11.9 - Type 2 diabetes mellitus without complications Status: Acute (6) Breast cancer: Code(s): C50.919 - Malignant neoplasm of unspecified site of unspecified female breast Status: Acute (7) Asthma: Code(s): J45.909 - Unspecified asthma, uncomplicated Status: Acute Plan Disposition: patient discharged home with home health DS: Summary Hospital Course Reason for hospitalization: Post repair of right hip fracture/ rehabilitation Hospital Course: patient was a 74-year-old female who was admitted to [facility] for continued rehabilitation post repair of right hip fracture. Patient was provided pain control with pain medications and lidocaine patches. she over overall had improvement with PT/OT. patient at time of discharge still requiring the use of a walker but able to perform some of her own ADLs. Patient did report her is at home and will assist with care. Patient was prescribed Lovenox injections she will need 15 more doses education was provided at bedside. patient's labs and vitals were stable during admission however patient did have complaints of right knee pain knee x-ray showed osteoarthritis and she was prescribed Voltaren topical. patient with anemia likely secondary to and expected from a right hip fracture patient asymptomatic but did recommend a follow-up with primary for a CBC and to monitor for any signs of bleeding while on the Lovenox shots. patient discharged home with encouraged ambulation and therapy exercises. Status at Discharge Functional status at discharge: uses cane/walker Overall status at discharge: patient is progressing back to baseline Time Spent with Patient Time attestation: Total time spent providing and/or coordinating discharge services: Time spent: Greater than 30 minutes Exam Narrative: GENERAL: Alert and oriented x 3. No acute distress. EYES: EOMI. No scleral icterus. PERRLA. HEENT: Moist mucous membranes. LUNGS: Clear to auscultation bilaterally. No accessory muscle use. CARDIOVASCULAR: Regular rate and rhythm. No murmur. No JVD. S1-S2 ABDOMEN: Soft, non tenderness and non-distended. No palpable masses. EXTREMITIES: No edema. Non-tender Mild Tenderness to RT knee SKIN: No rashes or lesions. Skin warm, dry. NEUROLOGIC: No focal neurological deficits. CN II-XII grossly intact PSYCHIATRIC: Appropriate mood and affect. Good judgement and insight. No visual or auditory hallucinations. No suicidal or homicidal ideation. Discharge Plan Discharge Attending physician on discharge: Franko Woodward Discharging Clinician: Savannah Haynes Anticipated Discharge Date/Time: 04/27/24 09:05 Patient Disposition: Home, Self-Care Activity: may shower, as tolerated and other - see discharge instructions Diet: heart healthy Discharge Instructions: Per Care Coordination: You have a follow up with Dr. North (ortho) on April 28 at 8:[address] North is located at the [facility] ([facility] [place], [place]) and their phone number is [phone]. You were prescribed Lovenox injections instructions and education attached. Teaching was provided at bedside prior t
--- NOTE | 2024-04-27 10:20 | PC.NURSE ---
Patient discharging home. All belongings gathered together and sent home with patient. Walker delivered to patient saturday and sent home with patient today. All discharge instructions and education reviewed with patient. Patient denies any questions. Patient left floor via wheelchair accompanied by this nurse. Left via private vehicle with .
--- NOTE | 2024-04-28 13:14 | PC.NURSE ---
Discharge call back attempted, no answer
--- NOTE | 2024-04-30 09:34 | PC.NURSE ---
Discharge call back attempted no answer
--- NOTE | 2024-05-04 08:57 | PC.NURSE ---
Discharge call back completed, doing well, no questions regarding dc instructions
== END 2024-04-27 10:20 | disposition home or self-care (01) | DRG 561 ==
PROVIDERS: Nurse Practitioner Acute Care; Admitting Provider Internal Medicine; PCP Family Medicine; Visit Provider Nurse Practitioner Family
DX: S72.001D Fracture of unspecified part of neck of right femur, subsequent encounter for closed fracture with routine healing (principal); C50.919 Malignant neoplasm of unspecified site of unspecified female breast; I10 Essential (primary) hypertension; I27.20 Pulmonary hypertension, unspecified; E78.5 Hyperlipidemia, unspecified; E11.9 Type 2 diabetes mellitus without complications; D64.9 Anemia, unspecified; J45.909 Unspecified asthma, uncomplicated; K59.03 Drug induced constipation; T40.605A Adverse effect of unspecified narcotics, initial encounter; M17.11 Unilateral primary osteoarthritis, right knee; M85.80 Other specified disorders of bone density and structure, unspecified site; F03.90 Unspecified dementia, unspecified severity, without behavioral disturbance, psychotic disturbance, mood disturbance, and anxiety; F41.9 Anxiety disorder, unspecified; Z79.82 Long term (current) use of aspirin; Z91.81 History of falling
CPT/HCPCS: 36415; 72040; 73562; 80053; 82948; 85027; 97110; 97161; 97165; 97530; 97535; A9270; J1650

== ENCOUNTER 2024-08-10 12:53 | Outpatient (RCR) | payer MEDICARE, SELFPAY ==
--- NOTE | 2024-08-10 15:12 | PTOPEVAL1 ---
Assessment and note entered by [facility] Evaluation Information Assessment Status Evaluation ICD-10 Condition Codes (PT) Abnormalities of gait and mobility R26.9,Weakness R53.1 Other ICD-10 Condition Codes ( Z87.81 PT) Subjective Information Pt reports she attempted to stand up from a barstool and fell on 04/10/24 and broke her femur. She had ORIF of the R femur and R TKA in March, and an additional surgery in June 2024 to get a screw replaced. She reports she's functionally declined since this happened and has been confined to her chair. She has been using a wheeled walker for ambulation since surgery. She is able to go up/down her stairs at home to access her bedroom and bathroom. Is not currently driving but states that her doctor told her that clearance to drive is up to PT discretion. She denies pain this date but reports an increase in pain when she tries to stand or move around too much. Also reports feeling like her R leg is shorter since surgery. Reported Pain Level Pain Score 0,0: Self Report Assessment PT Clinical Summary Mrs. Deleon is a 74 year old female presenting to physical therapy for rehabilitation for R femur fracture and R TKA following a fall in March 2024. She demonstrates significantly impaired hip and knee strength and ROM and gait deficits causing functional decline and difficulty walking. She will benefit from skilled therapy services to improve on these deficits to allow her to perform regular functional mobility tasks and ADLs without difficulty. Plan of Care Interventions Electrical Stimulation,Gait Training,Hot Pack/Cold Pack,Intermittent Compression Pump,Manual Therapy ,Neuro Re-education,Patient/Caregiver Education, Therapeutic Activities,Therapeutic Exercise,Self- Care/Home Management PT Services Indicated Yes Treatment Frequency and 2x/week for 12 visits Duration These treatments will address the objective and functional deficits as defined above. The patient will be advanced safely and appropriately in order for the patient to progress towards his/her prior level of function. Additional exercises will be introduced and as well as a comprehensive home exercise program upon discharge, if needed, ?to ensure carryover of functional gains achieved in the clinic. This treatment plan has been reviewed and agreement upon by the patient.
--- NOTE | 2024-08-10 15:12 | OPREHPOC ---
Outpatient Therapy Plan of Care This is a Multidisciplinary Plan of Care that may contain components documented by all disciplines (PT, OT, and ST.) PT Problem 1 PT Problem #1 Knowledge Deficit PT Goal 1 Goal / Goal Update Pt to be independent with HEP. Target Visit 2 PT Problem 2 PT Problem #2 Impaired Range of Motion PT Goal 1 Goal / Goal Update Pt to improve R hip flexion AROM to 100. Pt to improve R hip flexion AROM to 100 to be able to get out of a chair without difficulty. Pt to reach 0 degrees R knee extension AROM. Pt to reach 0 degrees R knee extension AROM to improve gait mechanics. Target Visit 12 PT Problem 3 PT Problem #3 Impaired Strength PT Goal 1 Goal / Goal Update Pt to improve R hip flexion strength to 3+/5. Pt to improve R hip flexion strength to 3+/5 to improve limb clearance when ambulating. Pt to improve R knee extension strength to 5/5. Pt to improve R knee extension strength to 5/5 to improve stair climbing. Target Visit 12 PT Problem 4 PT Problem #4 Impaired Gait PT Goal 1 Goal / Goal Update Pt to demonstrate adequate heel strike during ambulation. Pt to improve 6WMT distance to 800ft in for efficient ambulation in the home and community. Target Visit 12
--- NOTE | 2024-09-02 14:53 | OPREHPOC ---
Outpatient Therapy Plan of Care This is a Multidisciplinary Plan of Care that may contain components documented by all disciplines (PT, OT, and ST.) PT Problem 1 PT Problem #1 Knowledge Deficit PT Goal 1 Goal / Goal Update Pt to be independent with HEP. Target Visit 2 Progress Met PT Problem 2 PT Problem #2 Impaired Range of Motion PT Goal 1 Goal / Goal Update Pt to improve R hip flexion AROM to 100. Pt to improve R hip flexion AROM to 100 to be able to get out of a chair without difficulty. Pt to reach 0 degrees R knee extension AROM. Pt to reach 0 degrees R knee extension AROM to improve gait mechanics. Target Visit 12 Progress Not Met PT Problem 3 PT Problem #3 Impaired Strength PT Goal 1 Goal / Goal Update Pt to improve R hip flexion strength to 3+/5. Pt to improve R hip flexion strength to 3+/5 to improve limb clearance when ambulating. Pt to improve R knee extension strength to 5/5. Pt to improve R knee extension strength to 5/5 to improve stair climbing. Target Visit 12 Progress Not Met PT Problem 4 PT Problem #4 Impaired Gait PT Goal 1 Goal / Goal Update Pt to demonstrate adequate heel strike during ambulation. Pt to improve 6WMT distance to 800ft in for efficient ambulation in the home and community. Target Visit 12 Progress Not Met
--- NOTE | 2024-09-02 14:53 | PTOPPROG ---
Assessment and note entered by Yeny Armando, PT Evaluation Information Assessment Status Progress Diagnosis s/p R femur fracture and TKA ICD-10 Condition Codes (PT) Abnormalities of gait and mobility R26.9,Weakness R53.1 Other ICD-10 Condition Codes ( Z87.81 PT) Onset 04/10/24 Subjective Information Katy Deleon reports her right knee and hip still have pain intermittently depending on what she is doing. She is noting stiffness today. She is still using her walker and notes she limps if she tries to walk without an AD. She also is not able to drive, walk grocery store distances, or perform hand packer. Assessment PT Clinical Summary Katy Deleon has completed 10 skilled PT visits for a right femur fracture. She is reporting ongoing difficulty walking without an AD, performing hand packer, and grocery shopping. She objectively demonstrates improving ROM at the right hip and knee, improving gait, improving strength, and improving balance. She continues to have defiicits in these areas though and has not met meterman goals. She will continue to benefit from skilled PT to further address these limitations. Plan of Care Interventions Hot Pack/Cold Pack,Patient/Caregiver Education, Therapeutic Activities,Therapeutic Exercise PT Services Indicated Yes Treatment Frequency and Continue skilled PT for 2 visits per original POC Duration These treatments will address the objective and functional deficits as defined above. The patient will be advanced safely and appropriately in order for the patient to progress towards his/her prior level of function. Additional exercises will be introduced and as well as a comprehensive home exercise program upon discharge, if needed, ?to ensure carryover of functional gains achieved in the clinic. This treatment plan has been reviewed and agreement upon by the patient.
--- NOTE | 2024-09-14 12:43 | PTOPDC ---
Assessment and note entered by Luisito Boswell Evaluation Information Assessment Status Discharge Diagnosis s/p right femur fracture and TKA ICD-10 Condition Codes (PT) Abnormalities of gait and mobility R26.9,Weakness R53.1 Other ICD-10 Condition Codes ( Z87.81 PT) Onset 04/10/24 Subjective Information Pt. reports she has returned to driving. She states that she is strictly using her cane for all activities. She states that pain is mild as of recently. She reports she is continuing to exercise at home and is ready for discharge at this time. Reported Pain Level Pain Score 0,2: Self Report Assessment PT Clinical Summary Pt. demonstrates excellent progress in regards to strength and gait efficiency. She continues to present with weakness and still has not met the goals at initial evaluation, however is progressing well. At this time she has a comprehensive HEP and appears motivated to continue to exercise. She was given additional written instruction on this date and will be discharged from our care. Plan of Care PT Services Indicated No
== END 2024-09-14 15:00 | disposition home or self-care (01) ==
LOC: CHSPT 12:53
DX: R53.1 Weakness (principal); Z87.81 Personal history of (healed) traumatic fracture
CPT/HCPCS: 97110; 97112; 97140; 97161; 97530; 97750

== ENCOUNTER 2025-04-23 08:26 | Outpatient (CLI) | payer MEDICARE, SELFPAY ==
--- OUTSIDE RECORDS SUMMARY | 2018-02-25 | XMS_ITS | Encounter Summary ---
Author Organization [facility] Healthcare Address [address] [place] [address] Care Team Providers Care Training Assistant Name Role Phone Guillermo Thomas MD Primary Care Provider [phone] Reason for Visit * Diagnostic Imaging (Routine) - Closed Specialty Diagnoses / Procedures Referred By Savannah lucio Referred To Contact Procedures Breast Imaging Screening Outside Reference Aft, Toya Anthony MD PhD [address] [place] [address] Phone: tel: fax: Referral ID Status Reason Start Date Expiration Date Visits Re quested Visits Authorized [id number] Closed 06/17/2023 07/16/2024 1 1 Encounter Details Date Type Department Care Team (Late st Contact Info) Description 02/25/2018 Hospital Encounter [facility] [address] [place] [address] [phone] Social History Tobacco Use Types Packs/Day Years [...] on file Legal Sex Female 12:40 AM GOLD PROSPECTOR Gender Identity Not on file Sexual Orientation Not on file documented as of this encounter Functional Status * AUDIT-C Score Answer Date of Assessment Author 1 12/19/2023 9:55 AM CDT My Paz RN * Question Answer Date of Assessment Author Q1: How often do you have a drink containing alcohol? Monthly or less 12/19/2023 9:55 AM CHESTERT My Paz RN Q2: How many drinks containing alcohol do you have on a typical day when you are drinking? Patient does not drink 06/22/2024 2:18 PM GOLD PROSPECTOR Karen Zhou CMA Q3: How often do you have six or more drinks on one occasion? Never 12/19/2023 9:55 AM CHESTERT My Paz RN documented as of this encounter Plan of Treatment Not on file documented as of this encounter Procedures Procedure Name Priority Date/Time Associated Diagnosis Comments BREAST IMAGING MG SCREENING OUTSIDE REFERENCE Routine 02/25/2018 12:00 AM CDT documented in this encounter Results * Breast Imaging Screening Outside Reference (02/25/2018 12:00 AM CDT) Impressions [facility] - 06/17/2023 10:02 AM GOLD PROSPECTOR These images are for Reference purposes only and have not been reviewed by [facility] Radiology. There will be no report generated by a [facility] Radiologist. Narrative [facility] - 06/17/2023 10:02 AM GOLD PROSPECTOR EXAMINATION: Images For Reference Purposes Only us Toya Coles MD PhD IMG MAMMO PROCEDURES Final Result [facility] documented in this encounter Visit Diagnoses Not on filedocumented in this encounter Care Teams Training Assistant Relationship Specialty Start Date End Date Guillermo Thomas MD PCP - General 04/04/17 11/14/22 documented as of this encounter
--- OUTSIDE RECORDS SUMMARY | 2020-03-24 | XMS_ITS | Encounter Summary ---
Author Organization [facility] Healthcare Address [address] [place] [address] Care Team Providers Care Certified Coder Name Role Phone Guillermo Thomas MD Primary Care Provider [phone] Reason for Visit * Diagnostic Imaging (Routine) - Closed Specialty Diagnoses / Procedures Referred By Savannah lucio Referred To Contact Procedures Breast Imaging Screening Outside Reference Aft, Toya Anthony MD PhD [address] [place] [address] Phone: tel: fax: Referral ID Status Reason Start Date Expiration Date Visits Re quested Visits Authorized [id number] Closed 06/17/2023 07/16/2024 1 1 Encounter Details Date Type Department Care Team (Late st Contact Info) Description 03/24/2020 Hospital Encounter [facility] [address] [place] [address] [phone] Social History Tobacco Use Types Packs/Day Years [...] on file Legal Sex Female 12:40 AM FISH CHECKER Gender Identity Not on file Sexual Orientation [...] Patient does not drink 06/22/2024 2:18 PM FISH CHECKER Karen Zhou CMA Q3: How often do [...] CDT) Impressions [facility] - 06/17/2023 10:04 AM FISH CHECKER These images are for Reference purposes only and have not been reviewed by [facility] Radiology. There will be no report generated by a [facility] Radiologist. Narrative [facility] - 06/17/2023 10:04 AM FISH CHECKER EXAMINATION: Images For Reference Purposes Only us Toya Coles MD PhD IMG MAMMO PROCEDURES Final Result [facility] documented in this encounter Visit Diagnoses Not on filedocumented in this encounter Care Teams Certified Coder Relationship Specialty Start Date End Date Guillermo Thomas MD PCP - General 04/04/17 11/14/22 documented as of this encounter
--- OUTSIDE RECORDS SUMMARY | 2025-04-23 08:34 | XMS_ITS | Clinical Summary ---
Author Organization [facility] Address [address] [place] [address] Care Team Providers Care Double Cut Sawyer Name Role Phone Jeanna Valdes MD Primary Care Provider [phone] AfToya lucio MD PhD Unavailable [phone] Weston Hager MD Unavailable Nitin Angeles MD Unavailable [phone] Allergies Active Allergy Reactions Criticality Noted Date Comments Penicillins Angioedema,Syncope,Rash High 11/22/2014 Reaction: Syncope, facial swelling, Medications albuterol HFA (PROVENTIL HFA,VENTOLIN HFA,PROAIR HFA) 90 mcg/actuation inhalerIndicati ons:Acute Asthma Attack Inhale 2 puffs every 6 (six) hours as needed for wheezing or shortness of breath 3 Active amLODIPine (NORVASC) 10 mg tabletIndicatio ns:hypertension Take 1 tablet (10 mg total) by mouth every morning 3 Active FLUoxetine (PROzac) 40 mg capsuleIndicati ons:depression Take 1 capsule (40 mg total) by mouth every morning 3 Active levothyroxine (SYNTHROID) 25 mcg tabletIndicatio ns:hypothyroidi sm Take 1 tablet (25 mcg total) 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 before breakfast 3 Active mirtazapine (REMERON) 15 mg tabletIndicatio ns:Insomnia Take 1 tablet (15 mg total) by mouth nightly as needed (to help sleep) 3 Active Januvia 50 mg tabletIndicatio ns:type 2 diabetes mellitus Take 1 tablet (50 mg total) by mouth every morning 3 Active blood glucose diagnostic (glucose blood) stripIndication s:type 2 diabetes mellitus 1 each by other route every other day 2 Active aspirin 81 mg chewable tabletIndicatio ns:primary prevention of coronary heart disease, asked her to start taking Take 1 tablet (81 mg total) by mouth every morning 2 Active cholecalciferol 25 mcg (1,000 unit) tabletIndicatio ns:Vitamin D Deficiency Take 1 tablet (1,000 Units total) by mouth daily 2 Active cyanocobalamin (Vitamin B-12) 1,000 mcg sublingual tabletIndicatio ns:Prevention of Vitamin B12 Deficiency Take 1 tablet (1,000 mcg total) by mouth every morning 2 Active hydroCHLOROthia zide (HYDRODIURIL) 12.5 mg tabletIndicatio ns:Edema Take 1 tablet (12.5 mg total) by mouth daily as needed 0 Active losartan (COZAAR) 100 mg tabletIndicatio ns:hypertension Take 1 tablet (100 mg total) by mouth every morning 1 Active omega-3 fatty acids-fish oil 300-1,000 mg capsuleIndicati ons:hypercholes terolemia Take 1 capsule (1 g total) by mouth every morning Active acetaminophen 500 mg capsule Take 2 capsules (1,000 mg total) by mouth every 8 (eight) hours as needed for pain 30 tablet 4 Active docusate sodium (COLACE) 100 mg capsuleIndicati ons:constipatio n Take 1 capsule (100 mg total) by mouth 2 (two) times a day as needed for constipation 14 capsule 4 Active evolocumab (REPATHA PUSHTRONEX SUBQ) Inject under the skin Active ergocalciferol (VITAMIN D) 50,000 unit capsuleIndicati ons:Malignant neoplasm of right female breast, unspecified estrogen receptor status, unspecified site of breast (HCC) Take 1 capsule (50,000 Units total) by mouth once a week 4 capsule 2 4 Active FLUoxetine (PROzac) 60 mg tablet 4 Active budesonide-form oteroL (Symbicort) 80-4.5 mcg/actuation inhalerIndicati ons:Maintenance Therapy for Asthma Inhale 2 puffs 2 (two) times a day Rinse mouth with water after use. Do not swallow. 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 08/13/2024 Osteopenia 08/13/2024 Wound infection after surgery 11/14/2023 Malignant neoplasm of female breast 09/10/2023 Dyspnea on exertion 06/27/2023 Malignant neoplasm of right female breast 2022 Cancer Staging:Clinical:Stage IB(cT1c(4), cN1, cM0, G2, ER+, SC+, HER2-, Oncotype DX score: 4) - Signed by Kevon Huang MD on 12/15/2023 Asthma, persistent not controlled 12/21/2022 Wheezing Encounters Date Type Department Care Team Description 04/13/2025 Telephone [facility] [address] [place] [address] 8 [place] [address] Nitin Angeles MD 04/13/20[facility] [address] [place] [address] 8 [place] [address] Nitin Angeles MD 04/09/2025 [facility] [address] [place] [address] 8 [place] [address] Nitin Angeles MD 04/08/2025 12:00 PM CDT Infusion [facility] - Infusion [address] [facility] [address] [place] [address] Malignant neoplasm of right female breast, unspecified estrogen receptor status, unspecified site of breast (HCC) (Primary Dx); Osteopenia, unspecified location; detention (current) use of aromatase inhibitors 04/08/2025 11:30 AM CDT Clinical Support [facility] - Lab Collection [address] [place] [address] 5 [place] [address] Hypercalcemia 04/08/2025 10:40 AM CDT Office Visit [facility] [address] [place] [address] 8 [place] [address] Nitin Angeles MD Malignant neoplasm of right female breast, unspecified estrogen receptor status, unspecified site of breast (HCC) (Primary Dx); Osteopenia, unspecified location; detention (current) use of aromatase inhibitors; Hypercalcemia 04/08/2025 9:45 AM CDT Lab [facility] - Lab Collection [address] [place] [address] Osteopenia, unspecified location; detention (current) use of aromatase inhibitors; Malignant neoplasm of right female breast, unspecified estrogen receptor status, unspecified site of breast (HCC) 01/29/2025 Telephone [facility] [address] [place] [phone] Nitin Angeles MD 01/29/2025 Results Follow-Up [facility] Oncology [address] [place] [phone] Nitin Angeles MD Comprehensive metabolic panel, eGFR 01/28/2025 1:30 PM CDT Lab [facility] - Lab Collection [address] [place] [address] Malignant neoplasm of right female breast, unspecified estrogen receptor status, unspecified site of breast (HCC) from Last 3 Months Immunizations Immunization Administration Dates Next Due Influenza, Quadrivalent, Hig h Dose, Preservative Free, Intrr 05/16/2022,04/12/2021 Influenza, Quadrivalent, Split, Intramuscular ,06/12/2016 Influenza, Trivalent, IM (MDV) 04/14/2012 Pneumococcal Conjugate PCV 13 06/12/2016 Pneumococcal Polysaccharide PPV23 02/21/2021 Surgical History Surgery Date Site/Laterality Comments US GUIDED BIOPSY LYMPH NODE SUPERFICIAL LEFT 07/04/2023 N/A COLONOSCOPY 04/28/2021 COLONOSCOPY WITH COLD BX performed by Yogi Eddy MD at [facility] OR TONSILLECTOMY 07/15/1954 - 07/14/1955 HYSTERECTOMY 07/15/1991 - 07/14/1992 HIATAL HERNIA REPAIR Over 10 years ago BREAST SOFT TISSUE MARKER PLACEMENT LEFT 08/07/2023 Right BREAST BIOPSY 05/22/2023 Right BREAST BIOPSY 05/22/2023 Right Medical History Medical History Date Comments Diabetes Hypertension Sleep apnea Rash 07/17/2023 Under breasts an d both axilla (pt states from yeast infection and that [place] is aware of this) Delayed emergence from gener al anesthesia Breast cancer (HCC) Type 2 diabetes mellitus Family History Medical History Relation Name Comments Heart disease Brother Breast cancer Daughter Cancer Daughter Heart disease Father Heart disease Mother Heart disease Sister Relation Name Status Comments Brother Daughter Alive Father Mother Sister Social History Tobacco Use Types Packs/Day Years Used Date Smoking Tobacco: Never Passive Smoke Exposure: Past Smokeless Tobacco: Never Tobacco Cessation:Counseling Given: Not Answered Passive Exposure Comments:Dad smoked Alcohol Use Standard Drinks/Week Comments Not [...] on file 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 Gender Identity Not on file Sexual Orientation Not on file Obstetrics History Last Filed Vital Signs Vital Sign Reading Time Taken Comments Blood Pressure 113/72 04/08/2025 9:56 AM CDT Pulse 82 04/08/2025 9:56 AM CDT Temperature 36.3 C (97.4 F) 04/08/2025 9:56 AM CDT Respiratory Rate 16 04/08/2025 9:56 AM CDT Oxygen Saturation 95% 04/08/2025 9:56 AM CDT Inhaled Oxygen Concentration - - Weight 92.1 kg (203 lb) 04/08/2025 9:56 AM CDT Height 160.2 cm (5' 3.07) 04/08/2025 9:56 AM CD T Body Mass Index 35.88 04/08/2025 9:56 AM CDT Plan of Treatment Health Maintenance Due Date Last Done Comments Depression Screening 1950 Hepatitis C Screening 1950 DTaP/Tdap/Td Vaccine (1 - Tdap) 02/20/1960 Hepatitis B Screening 1967 Zoster Vaccine (1 of 2) 02/20/1968 Well Visit 65+ 2014 Fall Risk Assessment 12/18/2024 12/19/2023, 11/15/19 24 Covid-19 Vaccine ( - 2024-2 6 season) 2025 05/16/2022, 07/22/2021, 09/07/2020, Additional history exists Influenza Vaccine (#1) 2025 , 04/12/2021, 04/30/2019, Additional history exists Osteoporosis Screening-Bone Density Scan 12/25/2025 12/26/2023, 01/27/2021 Pneumococcal vaccine 65+ Completed 02/21/2021, 05/16 Breast Cancer Screening-Mammogram Discontinued 05/15/2023, 05/18/2021, 03/24/2020 Medical Devices Implanted Type Area Coupling Machine Operator Device Identifier Shelf Expiration Date Model / Serial / Lot B [employer] Magtrace Liquid Marker 10 Vial Carton [id number] - [id number] Implanted:Qty : 1 on 09/10/2023 by Aft, Toya Anthony MD PhD at [facility] Other - see comments Right: Breast [employer] 12/13/2024 [id number] / / [id number] Description:Magtrace Bard Peripheral Vascular Marker Breast Ring Shape Radiopaque Nitinol Ultracor Twirl [id number] - [id number] Implanted:Qty : 1 on 07/04/2023 at [facility] Right: Axilla Bard Peripheral Vascular [id number] [facility]17 / / B [employer] Marker Tissue Needle Delivery Spiral Capped Seed Radiopaque Engineering Mgr Stainless Steel Low Nickel Sentimag [id number] - [id number] Implanted:Qty : 1 on 08/07/2023 by Tammy Prado MD at [facility] Right: Axilla B [employer] [id number] 01/11/2027 [id number] Procedures Procedure Name Priority Date/Time Associated Diagnosis Comments PTH Routine 04/08/2025 11:34 AM CDT Hypercalcemia TSH STAT 04/08/2025 9:45 AM CDT Osteopenia, unspecified location detention (current) use of aromatase inhibitors Malignant neoplasm of right female breast, unspecified estrogen receptor status, unspecified site of breast (HCC) T4, FREE STAT 04/08/2025 9:45 AM CDT Osteopenia, unspecified location detention (current) use of aromatase inhibitors Malignant neoplasm of right female breast, unspecified estrogen receptor status, unspecified site of breast (HCC) EGFR STAT 04/08/2025 9:45 AM CDT Osteopenia, unspecified location detention (current) use of aromatase inhibitors Malignant neoplasm of right female breast, unspecified estrogen receptor status, unspecified site of breast (HCC) COMPREHENSIVE METABOLIC PANEL STAT 04/08/2025 9:45 AM CDT Osteopenia, unspecified location 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 Malignant neoplasm of right female breast, unspecified estrogen receptor status, unspecified site of breast (HCC) EGFR Routine 01/28/2025 1:07 PM CDT Malignant neoplasm of right female breast, unspecified estrogen receptor status, unspecified site of breast (HCC) COMPREHENSIVE METABOLIC PANEL Routine 01/28/2025 1:07 PM CDT Malignant neoplasm of right female breast, unspecified estrogen receptor status, unspecified site of breast (HCC) from Last 3 Months Results * (ABNORMAL) PTH (04/08/2025 11:34 AM CDT) PTH 98(H) 18 - 59 pg/mL Blood 04/08/2025 11:3 4 AM CDT 04/08/2025 12:34 PM CDT Nitin Angeles MD LAB BLOOD ORDERABLES Final Result Performing Organization Address City/State/[facility] Co de Phone Number [facility] Department [place] [address] * (ABNORMAL) eGFR (04/08/2025 9:45 AM CDT) eGFR 49(L) >=60 mL/min/1. 73 m2 Comment: Interpretive Data Reference Interval Normal >/= 90 mL/min/1.73m2 Mildly decreased* 60 - 89 mL/min/1.73m2 Mildly to moderately decreased 45 - 59 mL/min/1.73m2 Moderately to severely decreased 30 - 44 mL/min/1.73m2 Severely decreased 15 - 29 mL/min/1.73m2 Kidney Failure < 15 mL/min/1.73m2 *Relative to young adult level Estimated glomerular filtration rate is determined by the 2020 CKD-EPI equation recommended by the National Kidney Foundation (A Unifying Approach to GFR Estimation: Recommendations of the NKF-ASK Task Force on Reassessing the Inclusion of Race in Diagnosing Kidney Disease, JASN 2020). The CKD-EPI equation should not be used for patients with unstable renal function and has not been validated in children and those over 70. Current interpretive data was last reviewed 2021. Blood 04/08/2025 9:45 AM CDT 04/08/2025 9:47 AM CDT Nitin Angeles MD LAB BLOOD ORDERABLES Final Result Performing Organization Address City/State/[facility] Co de Phone Number [facility] [place] [address] * TSH (04/08/2025 9:45 AM CDT) [facility] Thyroid Stimulating Hormone 3.36 0.30 - 4.20 mcIUnit/mL Blood 04/08/2025 9:45 AM CDT 04/08/2025 9:47 AM CDT Nitin Angeles MD LAB BLOOD ORDERABLES Final Result Performing Organization Address [facility] Co de Phone Number [facility] [place] [address] * T4, free (04/08/2025 9:45 AM CDT) [facility] Free T4 1.00 0.90 - 1.70 ng/dL Blood 04/08/2025 9:45 AM CDT 04/08/2025 9:47 AM CDT Nitin Angeles MD LAB BLOOD ORDERABLES Final Result Performing Organization Address [facility] Co de Phone Number [facility] [place] [address] * (ABNORMAL) Comprehensive metabolic panel (04/08/2025 9:45 AM CDT) [facility] Sodium 142 135 - 145 mmol/L Potassium, pl 4.6 3.3 - 4.9 mmol/L [facility] Chloride 106 97 - 110 mmol/L [facility] CO2 23 22 - 32 mmol/L [facility] Anion gap 13 2 - 15 mmol/L [facility] BUN 21 6 - 25 mg/dL [facility] Creatinine 1.15(H) 0.60 - 1.10 mg/dL [facility] Glucose 101 70 - 199 mg/dL [facility] Comment: Interpretive Data Fasting glucose >/= 126 mg/dl is diagnostic for diabetes. Fasting is defined as no caloric intake for at least 8 hours. Fasting glucose between 100 mg/dl to 125 mg/dl is diagnostic of prediabetes. In a patient with classic symptoms of hyperglycemia or hyperglycemic crisis, a random glucose >/= 200 mg/dl is diagnostic for diabetes. In the absence of unequivocal hyperglycemia, results should be confirmed by repeat testing. The classification and Diagnosis of Diabetes Diabetes Care 2021; 46: S19-S40. Current interpretive data was last revised 2022. Calcium 10.7(H) 8.5 - 10.3 mg/dL [facility] Bilirubin, total 0.5 0.1 - 1.2 mg/dL [facility] Protein, pl 8.5 6.5 - 8.5 g/dL [facility] Albumin 4.3 3.5 - 5.0 g/dL [facility] Alk phos 108 40 - 130 Units/L [facility] ALT 23 7 - 45 Units/L [facility] AST 33 10 - 45 Units/[facility] Blood 04/08/2025 9:45 AM CDT 04/08/2025 9:47 AM CDT us iNtin Angeles MD LAB BLOOD ORDERABLES Final Result [facility] Department [place] [address] * (ABNORMAL) eGFR (01/28/2025 1:07 PM CDT) eGFR 49(L) >=60 mL/min/1. 73 m2 Comment: Interpretive Data Reference Interval Normal >/= 90 mL/min/1.73m2 Mildly decreased* 60 - 89 mL/min/1.73m2 Mildly to moderately decreased 45 - 59 mL/min/1.73m2 Moderately to severely decreased 30 - 44 mL/min/1.73m2 Severely decreased 15 - 29 mL/min/1.73m2 Kidney Failure < 15 mL/min/1.73m2 *Relative to young adult level Estimated glomerular filtration rate is determined by the 2020 CKD-EPI equation recommended by the National Kidney Foundation (A Unifying Approach to GFR Estimation: Recommendations of the NKF-ASK Task Force on Reassessing the Inclusion of Race in Diagnosing Kidney Disease, JASN 2020). The CKD-EPI equation should not be used for patients with unstable renal function and has not been validated in children and those over 70. Current interpretive data was last reviewed 2021. Blood 01/28/2025 1:07 PM CDT 01/28/2025 1:11 PM CDT us Nitin Angeles MD LAB BLOOD ORDERABLES Final Result [facility] Department [place] [address] * (ABNORMAL) Comprehensive metabolic panel (01/28/2025 1:07 PM CDT) Sodium 143 135 - 145 mmol/L Potassium, pl 4.2 3.3 - 4.9 mmol/L [facility] Chloride 107 97 - 110 mmol/L [facility] CO2 27 22 - 32 mmol/L [facility] Anion gap 9 2 - 15 mmol/L [facility] BUN 14 6 - 25 mg/dL [facility] Creatinine 1.17(H) 0.60 - 1.10 mg/dL [facility] Glucose 96 70 - 199 mg/dL [facility] Comment: Interpretive Data Fasting glucose >/= 126 mg/dl is diagnostic for diabetes. Fasting is defined as no caloric intake for at least 8 hours. Fasting glucose between 100 mg/dl to 125 mg/dl is diagnostic of prediabetes. In a patient with classic symptoms of hyperglycemia or hyperglycemic crisis, a random glucose >/= 200 mg/dl is diagnostic for diabetes. In the absence of unequivocal hyperglycemia, results should be confirmed by repeat testing. The classification and Diagnosis of Diabetes Diabetes Care 2021; 46: S19-S40. Current interpretive data was last revised 2022. Calcium 10.2 8.5 - 10.3 mg/dL [facility] Bilirubin, total 0.5 0.1 - 1.2 mg/dL [facility] Protein, pl 8.5 6.5 - 8.5 g/dL [facility] Albumin 4.3 3.5 - 5.0 g/dL [facility] Alk phos 116 40 - 130 Units/L [facility] ALT 33 7 - 45 Units/L [facility] AST 44 10 - 45 Units/L [facility] Blood 01/28/2025 1:07 PM CDT 01/28/2025 1:11 PM CDT Nitin Angeles MD LAB BLOOD ORDERABLES Final Result [facility] Department [place] [address] from Last 3 Months Insurance [facility] MEDICARE SUPPLEMENT MEDICARE MEDICARE [facility] MEDICARE SUPPLEMENT Advance Directives For more information, please contact: [phone] * Full Code (Latest Code Status on File) Date Activated Date Inactivated Comments 11/14/2023 9:22 PM 11/15/2023 5:54 PM * Full Code Date Activated Date Inactivated Comments 09/10/2023 1:59 PM 09/11/2023 4:21 PM Care Teams Double Cut Sawyer Relationship Specialty Start Date End Date Jeanna Valdes MD [address] [place] [address] PCP - General Family Medicine 11/15/22 Toya Coles MD PhD [address] [place] [address] Surgeon Surgical Oncology 09/11/23 Weston Hager MD [address] [facility] [address] [place] [address] Radiation Oncologist Radiation Oncology 12/19/23 Nitin Angeles MD [address] [place] [address] Medical Oncologist/Wind Turbine Controls Engineer Medical Oncology 12/19/23
--- OUTSIDE RECORDS SUMMARY | 2025-04-23 08:34 | XMS_ITS | Clinical Summary ---
Author Organization [facility] Address [address] [place] [address] Care Team Providers Care Punch Press Operator Name Role Phone Jeanna Valdes MD Primary Care Provider [phone] Allergies Active Allergy Reactions Criticality Noted Date Comments Penicillin V Rash High 11/22/2014 Penicillins Rash,Syncope Low 03/25/2020 Medications FLUoxetine 40 MG capsule Take 1 capsule (40 mg total) by mouth daily. Active amLODIPine 5 MG tablet Take 1 tablet (5 mg total) by mouth daily. Active losartan 100 MG tablet Take 1 tablet (100 mg total) by mouth nightly at bedtime. Active Cyanocobalamin (VITAMIN B-12) 1000 MCG SL TabIndications:Ty pe 2 diabetes mellitus with diabetic polyneuropathy, without long-term current use of insulin ([facility]) Place 1 tablet under the tongue daily. 90 tablet Active vitamin D3, cholecalciferol, (VITAMIN D) 1000 UNIT Tab tabletIndications :Mixed hyperlipidemia Take 1 tablet (1,000 Units total) by mouth daily. 30 tablet Active aspirin 81 MG chewable tabletIndications :Type 2 diabetes mellitus with diabetic polyneuropathy, without long-term current use of insulin ([facility]) Chew 1 tablet (81 mg total) by mouth daily. 30 tablet 022 Active Glucose Blood (FREESTYLE LITE) test stripIndications: Type 2 diabetes mellitus with diabetic polyneuropathy, without long-term current use of insulin ([facility] HHS/HCC) 1 strip by Other route daily. Use as instructed 50 strip 4 023 Active miconazole (MICOTIN) 2 % cream Apply topically 2 (two) times daily. APPLY TO AFFECTED AREA Active mirtazapine (REMERON) 15 MG tablet Take 1 tablet (15 mg total) by mouth nightly at bedtime. Active letrozole (FEMARA) 2.5 MG tablet Take 1 tablet by mouth daily. Active budesonide-formot baudilio (SYMBICORT) 80-4.5 MCG/ACT inhaler Inhale 2 puffs into the lungs 2 (two) times daily. Active levothyroxine (SYNTHROID) 50 MCG tabletIndications :Subclinical hypothyroidism TAKE 1 TABLET BY MOUTH EVERY DAY IN THE MORNING 90 tablet 3 025 Active tirzepatide (MOUNJARO) 7.5 MG/0.5ML injectionIndicati ons:Diabetes Mellitus Inject 7.5 mg into the skin once a week. Indications: Diabetes 2 mL 025 Active SITagliptin (JANUVIA) 50 MG tabletIndications :Mixed hyperlipidemia,Ty pe 2 diabetes mellitus with microalbuminuria, without long-term current use of insulin ([facility]) Take 1 tablet (50 mg total) by mouth daily. 30 tablet 2 024 2024 Discontinued(T herapy completed) levothyroxine (SYNTHROID) 50 MCG tabletIndications :Subclinical hypothyroidism Take 1 tablet (50 mcg total) by mouth every morning. 90 tablet 3 024 2024 Discontinued tirzepatide (MOUNJARO) 5 MG/0.5ML injectionIndicati ons:Diabetes Mellitus Indications: Diabetes Inject 5mg into skin once weekly 2 mL 3 025 2024 Discontinued(D ose adjustment) Active Problems Problem Noted Date Diagnosed Date Closed right hip fracture ([facility] HHS/HCC) 03/16 Encounters Date Type Department Care Team Description 04/16/2025 Telephone [facility] Diabetes and Endocrinology - [address] [address] Marina Gonzales MD Medication Request (Pt asking if script on Mounjaro can be increased to next level.) from Last 3 Months Immunizations Immunization Administration Dates Next Due Influenza (Generic) 04/30/2019,06/12/2016,2011 Pneumococcal (Prevnar 13) 06/12/2016 Family History Medical History Relation Comments CABG Brother Breast Cancer Daughter Her2 positive, d torhter CABG Father Open Heart Father Stroke Mother heart issues Mother pacemaker Sister Relation Status Comments Brother Daughter Father First heart sharon ck in his 50's Mother Sister Social History Tobacco Use Types Packs/Day Years Used Date Smoking Tobacco: Never Smokeless Tobacco: Never Tobacco Cessation:Counseling Given: Not Answered Alcohol Use Standard Drinks/Week Comments Not Currently 0 (1 standard drink = 0.6 oz pur e alcohol) [facility] Utilities Answer Date Recorded In the past 12 months has e [employer], gas, oil, or water [employer] threatened to shut off services in your home? No 04/11/2024 Humiliation, Afraid, Rape, and Kick questionnair e Answer Date Recorded Within the last year, have y ou been afraid of your partner or ex-partner? No 04/11/2024 Within the last year, have y ou been humiliated or emotionally abused in other ways by your partner or ex-partner? No Within the last year, have y ou been kicked, hit, slapped, or otherwise physically hurt by your partner or ex-partner? No 04/11/2024 Within the last year, have y ou been raped or forced to have any kind of sexual activity by your partner or ex-partner? No 04/11/2024 Overall Financial Resource Strain (CARDIA) Answe r Date Recorded How hard is it for you to pa y for the very basics like food, housing, medical care, and heating? Not hard at all 04/11/2024 PHQ-2 Answer Date Recorded Patient Health Questionnaire-2 Score 0 03/03/2024 Hunger Vital Sign Answer Date Recorded Within the past 12 months, y ou worried that your food would run out before you got the money to buy more. Never true 04/11/20 24 Within the past 12 months, t he food you bought just didn't last and you didn't have money to get more. Never true 04/11/2024 PRAPARE - Transportation Answer Date Re corded In the past 12 months, has l ack of transportation kept you from medical appointments or from getting medications? No 03/16 In the past 12 months, has l ack of transportation kept you from meetings, work, or from getting things needed for daily living? No 04/11/2024 Housing Stability Vital Sign Answer Roberto Carlos e Recorded In the last 12 months, was t here a time when you were not able to pay the mortgage or rent on time? No 04/11/2024 In the past 12 months, how m any times have you moved where you were living? 0 04/11/2024 At any time in the past 12 m [facility], were you homeless or living in a chcf (including now)? No 04/11/2024 Comments No Sex and Gender Information Value Date Recorded Sex Assigned at Not on file Legal Sex Female 5:09 PM CDT Gender Identity Not on file Sexual Orientation Not on file Last Filed Vital Signs Vital Sign Reading Time Taken Comments Blood Pressure 138/96 11/19/2024 11:21 AM CDT Pulse 69 11/19/2024 10:23 AM CDT Temperature 36.7 C (98.1 F) 04/17/2024 11:35 AM CDT Respiratory Rate 16 04/16/2024 11:16 PM CDT Oxygen Saturation 96% 11/19/2024 10:23 AM CDT Inhaled Oxygen Concentration - - Weight 102.5 kg (226 lb) 11/19/2024 10:23 AM CDT Height 167.6 cm (5' 6) 11/19/2024 10:23 AM CDT Body Mass Index 36.48 11/19/2024 10:23 AM CDT Plan of Treatment Upcoming Encounters Date Type Department Care Team (Late st Contact Info) Description 04/28/2025 10:40 AM CDT Office Visit [facility] Diabetes and Endocrinology - [address] [phone] [place] [address] [place] [id number] Health Maintenance Due Date Last Done Comments Kidney Health Evaluation 1950 Diabetes: Retinopathy Eye Exam 1968 Hepatitis C 1968 DTaP, Tdap and Td Vaccines (1 - Tdap) 02/20/1968 Zoster Vaccines (1 of 2) 1999 Annual Medicare Wellness Visit 2014 RSV Immunization or 60+ Years (1 - 1-dose 75+ series) 02/20/2024 PHQ-2 (Physician [place]) 07/15/2024 03/03/2024 Hemoglobin A1C 08/30/2024 02/28/2024, 05, 11/14/2023, Additional history exists Lipid Panel 02/27/2025 02/28/2024, 10/14, 02/05/2022, Additional history exists COVID-19 Vaccine ( season) 2025 09/07/2020, 08/17/2020 Influenza Adult (#1) 2025 04/12/2021, 04/30/2019, 06/12/2016, Additional history exists Pneumococcal Vaccine: 50+ Years Completed 02/21/2021, 06/12/2016 Colorectal Cancer Screening Colonoscopy (10 Years) Discontinued 04/28/2021, 04/28/2021 Dexa Scan (General) Completed 12/26/2023, Meningococcal B Vaccine Aged Out No l onger eligible based on patient's age to complete this topic Meningococcal Vaccine Aged Out No carmine kaleigh eligible based on patient's age to complete this topic RSV Immunizations Under 20 Months Aged Out No longer eligible based on patient's age to complete this topic Goals Goal Patient Goal Type Associated Problems Recent Progress Patient-Stated? Author Discharge Patient/family verbalizes understanding regarding the need for SWB placement Lifestyle Yes Kizzy Mario, RN Note: Ref sent: PASRR done. Safety Patient/family will have appropriate support at home upon discharge Lifestyle Yes Kizzy Mario, GERRI Medical Devices Implanted Type Area Global Human Resources Director Device Identifier Shelf Expiration Date Model / Serial / Lot Lag Screw Implanted:Qty: 1 on 04/11/2024 by Sonam North MD at [facility] [employer]ITA Screw [employer] [id number] 08/01/2033 8145-10-1 [id number] Cortical Screw Implanted:Qty: 1 on 04/11/2024 by Sonam North MD at [facility] Screw Right: Leg [employer] [id number] 01/24/2033 8145-50-0 54 / / [id number] Agent Hemostatic Surgif[employer] 8 Ml Kit - [id number] Implanted:Qty: 1 on 04/11/2024 by Sonam North MD at [facility] Sealant Right: Hip [employer] 11/11/2024 [id number] / / Hip Fracture Nail Implanted:Qty: 1 on 04/11/2024 by Sonam North MD at [facility] Right: Hip [employer] 02/17/2032 [id number] 00 / / Explanted Type Area Global Human Resources Director Device Identifier Shelf Expiration Date Model / Serial / Lot Pin Steinmann Threaded - [id number] Explanted:Qty: 2 on 04/11/2024 by Sonam North MD at [facility] Pin Right: Hip [employer] [id number] / / Drill Explanted:Qty: 2 on 04/11/2024 by Sonam North MD at [facility] Right: Hip [employer] 09/11/2033 [id number] / / Guide Pin Explanted:Qty: 2 on 04/11/2024 by Sonam North MD at [facility] Right: Hip [employer] 12/10/2033 [id number] / / Fracture Nail Explanted:Qty: 1 on 04/11/2024 by Sonam North MD at [facility] Right: Hip [employer] 10/24/2031 [id number] / / Description:Wasted wrong siz e Procedures Procedure Name Priority Date/Time Associated Diagnosis Comments LIPID PANEL Routine 02/28/2024 11:35 AM CDT Mixed hyperlipidemia HEMOGLOBIN, GLYCOSYLATED Routine 02/28/2024 11:35 AM CDT Type 2 diabetes mellitus with microalbuminuria, without long-term current use of insulin BONE DENSITY/DEXA Routine 12/26/2023 1:3 0 PM CDT Malignant neoplasm of right female breast COLONOSCOPY 04/28/2021 7:56 AM CDT from Last 3 Months or Most Recently Relevant to Health Maintenance Results * (ABNORMAL) HEMOGLOBIN, GLYCOSYLATED (02/28/2024 11:35 AM CDT) HGB A1C 6.1(H) <5.7 % 02/29/2024 6:16 PM CDT [facility] ESTIMATED AVG GLUCOSE 128(H) 74 - 114 MG/DL 02/29/2024 6:16 PM CDT [facility] 02/28/2024 11:3 5 AM CDT us Marina Gonzales MD LABORATORY Final Result [facility] [address] [place] [address], [id number] * (ABNORMAL) LIPID PANEL (02/28/2024 11:35 AM CDT) CHOLESTEROL 302 MG/DL 02/29/2024 5:55 PM CDT [facility] Comment:HIGH: > OR = 240 TRIGLYCERIDES 224 MG/DL 02/29/2024 5:55 PM CDT [facility] Comment:200-499 HIGH HDL 30(L) >49 MG/DL 02/29/2024 5:55 PM CDT [facility] LDL-C 227 MG/DL 02/29/2024 5:55 PM CDT [facility] Comment:>189 VERY HIGH VLDL CALCULATION 45 MG/DL 02/29/20 5:55 PM CDT [facility] Comment:REFERENCE RANGE NOT ESTABLISHED CHOL/HDL RATIO 10.1 02/29/2024 5:55 PM CDT [facility] Comment:REFERENCE RANGE NOT ESTABLISHED LDL/HDL 7.6 02/29/2024 5:55 PM CDT [facility] Comment:REFERENCE RANGE NOT ESTABLISHED NON HDL CHOLESTEROL 272 MG/DL 02/29/2024 5:55 PM CDT [facility] Comment:REFERENCE RANGE NOT ESTABLISHED 02/28/2024 11:3 5 AM CDT us Marina Gonzales MD LABORATORY Final Result [facility] [address] [place] [address], [id number] * BONE DENSITY/DEXA (12/26/2023 1:30 PM CDT) Anatomical Region Laterality Modality Bone Bone Density 12/26/2023 3:33 PM CDT Impressions 12/26/2023 3:37 PM CDT Impression: BMD measured at left femoral neck at WHO category level of osteopenia. BMD measured at right femoral neck, both total hips and AP lumbar spine at level of normal. Ordered By: MICHELLE WHITT Interpreted By: Noam Joyner MD, 12/26/2023 3:33 PM Narrative 12/26/2023 3:37 PM CDT Examination: DEXA Bone densitometry EXAM DATE: 12/26/2023 1:30 PM Clinical history: Postmenopausal. Prior hysterectomy. Technique: DEXA bone minimal density evaluation was performed in the AP projection over the lumbar spine and over both hips in the AP projection utilizing standard imaging techniques. Assessment: The BMD measured at the AP spine L1-L4 is 1.059 g/cm2 with a T-score of 0.1 and a Z-Score of 2.5. Bone density is up to 10% below young normal. This patient is considered normal according to the World Health Organization (WHO) criteria. Fracture risk is low. The BMD measured at the AP lumbar spine has increased 0.102 g/sq cm since study 01/27/2021. The BMD measured at the femur total left is 0.921 g/cm2 with a T-score of -0.2 and a Z-Score of 1.6. Bone density is up to 10% below young normal. This patient is considered normal according to the World Health Organization (WHO) criteria. Fracture risk is low. The BMD measured at left total hip is unchanged since study 01/27/2021. The BMD measured at the left femoral neck is 0.664 g/sq cm resulting in a T score of -1.7 and a Z score of 0.4, values at the WHO category level of osteopenia. The BMD measured at the femur total right is 0.843 g/cm2 with a T-score of -0.8 and aZ-Score of 1.0. Bone density is up to 10% below young normal. This patient is considered normal according to the World Health Organization (WHO) criteria. Fracture risk is low. The BMD measured at the right total hip has decreased 0.043 g/sq cm since study 10/28/2020. The BMD measured at the right femoral neck is 0.757 g/sq cm resulting in a T score of -0.8 and a Z score of 1.2, values at the WHO category level of normal. Fracture results: 10 year probability of major osteoporotic fracture 10% and of hip fracture 2%. Recommendations: All patients should ensure an adequate intake of dietary calcium and vitamin D. The NOF recommend adults under the age of 50 need 1000 mg of calcium and 400-800 IU of vitamin D daily. Effective therapy for the prevention and treatment of osteoporosis include biphosphonates. Follow-up: People with diagnosed cases of osteoporosis or at high risk for fracture should have regular bone mineral density test. For patients eligible for Medicare, routine testing is allowed once every 2 years. Testing frequency can be increased to one year for patients who have rapidly progressing disease, those who are receiving or discontinuing medical therapy to restore bone mass, or have additional risk factors. Based on these results, a followup exam is recommended in no earlier than 2 years for routine follow-up. As early as 1 year to assess efficacy of new medication therapy for treatment of osteoporosis. Procedure Note Noam Joyner MD - 12/26/2023 Examination: DEXA Bone densitometry EXAM DATE: 12/26/2023 1:30 PM Clinical history: Postmenopausal. Prior hysterectomy. Technique: DEXA bone minimal density evaluation was performed in the APprojection over the lumbar spine and over both hips in the AP projectionutilizing standard imaging techniques. Assessment: The BMD measured at the AP spine L1-L4 is 1.059 g/cm2 with a T-score of0.1 and a Z-Score of 2.5. Bone density is up to 10% below young normal.This patient is considered normal according to the World HealthOrganization (WHO) criteria. Fracture risk is low. The BMD measured at the AP lumbar spine has increased 0.102 g/sq cm sincestudy 01/27/2021. The BMD measured at the femur total left is 0.921 g/cm2 with a T-score of-0.2 and a Z-Score of 1.6. Bone density is up to 10% below youngnormal. This patient is considered normal according to the World HealthOrganization (WHO) criteria. Fracture risk is low. The BMD measured at left total hip is unchanged since study 01/27/2021. The BMD measured at the left femoral neck is 0.664 g/sq cm resulting in aT score of -1.7 and a Z score of 0.4, values at the WHO category level ofosteopenia. The BMD measured at the femur total right is 0.843 g/cm2 with a T-score of-0.8 and aZ-Score of 1.0. Bone density is up to 10% below young normal.This patient is considered normal according to the World HealthOrganization (WHO) criteria. Fracture risk is low. The BMD measured at the right total hip has decreased 0.043 g/sq cm sincestudy 10/28/2020. The BMD measured at the right femoral neck is 0.757 g/sq cm resulting in aT score of -0.8 and a Z score of 1.2, values at the WHO category level ofnormal. Fracture results: 10 year probability of major osteoporotic fracture 10%and of hip fracture 2%. Recommendations: All patients should ensure an adequate intake of dietary calcium andvitamin D. The NOF recommend adults under the age of 50 need 1000 mg ofcalcium and 400-800 IU of vitamin D daily. Effective therapy for theprevention and treatment of osteoporosis include biphosphonates. Follow-up: People with diagnosed cases of osteoporosis or at high risk for fractureshould have regular bone mineral density test. For patients eligible forMedicare, routine testing is allowed once every 2 years. Testing frequencycan be increased to one year for patients who have rapidly progressingdisease, those who are receiving or discontinuing medical therapy torestore bone mass, or have additional risk factors. Based on these results, a followup exam is recommended in no earlier than2 years for routine follow-up. As early as 1 year to assess efficacy ofnew medication therapy for treatment of osteoporosis. Impression: BMD measured at left femoral neck at WHO category level of osteopenia. BMD measured at right femoral neck, both total hips and AP lumbar spine atlevel of normal. Ordered By: MICHELLE WHITT Interpreted By: Noam Joyner MD, 12/26/2023 3:33 PM Michelle Whitt MD DEXA Final Result * COLONOSCOPY (04/28/2021 7:56 AM CDT) us Yogi Eddy MD GI PROCEDURE ORDERABLES Final Result from Last 3 Months or Most Recently Relevant to Health Maintenance Insurance MEDICARE [facility] Advance Directives * Full Code (Latest Code Status on File) Date Activated Date Inactivated Comments 04/10/2024 11:29 PM 04/17/2024 6:19 PM Care Teams Punch Press Operator Relationship Specialty [place] [address] [place] [address] [place] [address] PCP - General FAMILY PRACTICE 03/20/19
--- OUTSIDE RECORDS SUMMARY | 2025-04-23 08:34 | XMS_ITS ---
Author Organization [facility] Address [address] [place] [address] Care Team Providers Care Airport Sales Agent Name Role Phone Jeanna Valdes MD Primary Care Provider [phone] Aft, Toya Anthony MD PhD Unavailable [phone] Weston Hager MD Unavailable Nitin Angeles MD Unavailable [phone] Active Problems Problem Noted Date Diagnosed Date [facility] (current) use of aromatase inhibitors 08/13/2024 Osteopenia 08/13/2024 Wound infection after surgery 11/14/2023 Malignant neoplasm of female breast 09/10/2023 Dyspnea on exertion 06/27/2023 Malignant neoplasm of right female breast 2022 Cancer Staging:Clinical:Stage IB(cT1c(4), cN1, cM0, G2, ER+, FL+, HER2-, Oncotype DX score: 4) - Signed by Kevon Huang MD on 12/15/2023 Asthma, persistent not controlled 12/21/2022 Wheezing Current Treatment and Therapy Plans Zoledronic Acid Every 26 Weeks* Plan Start Date:10/08/2024 Plan Provider:Nitin Angeles MD Linked Problems Osteopenia, unspecified loca tionLong term (current) use of aromatase inhibitorsMalignant neoplasm of right female breast, unspecified estrogen receptor status, unspecified site of breast (HCC) Treatment Medications Current Day (Day 1 , Cycle 3 - Planned for 10/07/2025) Next Day (Day 1, Cycle 4 - Planned for 04/07/2026) No medications scheduled. No medications schedul ed. No medications scheduled. Past Treatment and Therapy Plans No past plan information found. Lifetime Dose Tracking * Chemical Lifetime Dose Automatic Entry Manual Entr y DLP 1,283 mGycm 1,283 mGycm 0 mGycm
[2025-04-23 09:32] LABS: Albumin Level 4.6 g/dL (3.5-5.1); Anion Gap 10 mmol/L (4-12); Blood Urea Nitrogen 20 mg/dL (7-17); Calcium 11.3 mg/dL (8.4-10.2); Carbon Dioxide 29 mmol/L (22-30); Chloride 106 mmol/L (98-107); Estimated Glomerular Filt Rate 39; Glucose 117 mg/dL (65-110); Osmolality Calculated 303 mOsm/kg (285-295); Potassium 5.1 mmol/L (3.4-5.0); Sodium 145 mmol/L (137-145)
[2025-04-28 09:03] LABS: Parathyroid Intact 79.9 (7.5-53.5)
== END 2025-04-23 08:27 | disposition home or self-care (01) ==
LOC: CHSLAB 08:30
PROVIDERS: PCP Family Medicine
DX: M81.0 Age-related osteoporosis without current pathological fracture (principal)
CPT/HCPCS: 36415; 80069; 82306; 83970

== ENCOUNTER 2025-05-15 10:59 | Outpatient (CLI) | payer MEDICARE, SELFPAY ==
[2025-05-16 05:38] LABS: Calcium, Urine 17.1 mg/dL (Not Estab.)
== END 2025-05-15 11:00 | disposition home or self-care (01) ==
LOC: CHSLAB 11:03
PROVIDERS: PCP Family Medicine
DX: M81.0 Age-related osteoporosis without current pathological fracture (principal); E83.52 Hypercalcemia
CPT/HCPCS: 82340; 82570; 82652

== ENCOUNTER 2025-05-24 11:44 | Outpatient (CLI) | payer MEDICARE, SELFPAY ==
--- OUTSIDE RECORDS SUMMARY | 2018-02-24 23:00 | XMS_ITS | Encounter Summary ---
Author Organization [facility] Healthcare Address [address] [place] [address] Care Team Providers Care Coat Joiner Lockstitch Name Role Phone Guillermo Thomas MD Primary Care Provider [phone] Reason for Visit * Diagnostic Imaging (Routine) - Closed Specialty Diagnoses / Procedures Referred By Savannah lucio Referred To Contact Procedures Breast Imaging Screening Outside Reference Aft, Toya Anthony MD PhD [address] [place] [address] Phone: tel: fax: Referral ID Status Reason Start Date Expiration Date Visits Re quested Visits Authorized [id number] Closed 06/17/2023 07/16/2024 1 1 Encounter Details Date Type Department Care Team (Late st Contact Info) Description 02/25/2018 Hospital Encounter [facility] [address] [place] [address] [phone] Social History Tobacco Use Types Packs/Day Years Used Date Smoking Tobacco: Never Passive Smoke Exposure: Past Smokeless Tobacco: Never Passive Exposure Comments:Da d smoked Alcohol Use Standard Drinks/Week Comments Not Currently 0 (1 standard drink = 0.6 oz pur e alcohol) AUDIT-C Answer Date Recorded Frequency of Alcohol Consumption Not on file 06/22/2024 Q2: How many drinks containi ng alcohol do you have on a typical day when you are drinking? Patient does not drink Frequency of Binge Drinking Not on file 03/2024 Personal Safety Answer Date Recorded Have you ever been in or are you currently in a harmful physical or emotional relationship or is someone making you feel afraid or unsafe? Denies 11/14/2023 Comments No Sex and Gender Information Value Date Recorded Sex Assigned at Not on file Legal Sex Female 12:40 AM GOODWILL REPRESENTATIVE Gender Identity Not on file Sexual Orientation Not on file documented as of this encounter Functional Status * C.A.G.E. Question Answer Date of Assessment Author Have you ever felt the need to Cut down on your drinking? 0 11/14/2023 9:24 PM Samia Menard RN Have people ever Annoyed yo u by criticizing your drinking? 0 11/14/2023 9:24 PM Yadira Menard RN Have you ever felt bad or Guilty about your drinking? 0 11/14/2023 9:24 PM Samia Menard RN Have you ever had a drink fi rst thing in the morning to steady your nerves or get rid of a hangover? Eye customer relations coordinator? 0 11/14/2023 9:24 PM Jasvir Menard RN CAGE SCORE: 2 or Greater = Positive 0 11/14/2023 9:24 PM Samia Menard RN * In the past year, patient experienced: Question Answer Date of Assessment Author One or more falls in the 2 12/19/2023 9:54 AM My Layne RN How many times? 2 or more 12/19/2023 9:54 AM My Whitmore RN Was the patient injured in the fall? No 12/19/2023 9:54 AM My Layne RN Has trouble stepping up onto a curb 0 12/19/2023 9:54 AM My Layne RN Advised to use a cane or walker to get around safely 0 12/19/2023 9:54 AM My Layne RN Often has to alexander to the toilet 0 12/19/2023 9:54 AM My Layne RN Feels unsteady when walking 0 12/19/2023 9: 54 AM My Layne, RN Has lost some feeling in feet 0 12/19/2023 9:54 AM My Layne, GERRI Steadies self on furniture while walking at home 0 12/19/2023 9:54 AM My Layne, RN Takes medicine that makes him/her feel lightheaded or more tired than usual 0 12/19/2023 9:54 AM My Layne, RN Worried about falling 0 12/19/2023 9:54 AM My Layne, RN Takes medicine to sleep or improve mood 1 12/19/2023 9:54 AM My Layne, RN Needs to push with hands whe n rising from a chair 1 12/19/2023 9:54 AM My Layne RN Often feels sad or depressed 0 12/19/2023 9 :54 AM My Layne RN STEADI Score Total 4 12/19/2023 9:54 AM CDT My Paz RN * Difference in Last Two Gab Scores Answer Date of Assessment Author 0 11/15/2023 8:23 AM Ab david Roque RN * Coker Fall Risk Question Answer Date of Assessment Author History of Falling 0 11/15/2023 8:23 AM Claudia Roque RN Secondary Diagnosis 15 11/15/2023 8:23 AM CD Claudia Perera RN Ambulatory Aids 0 11/15/2023 8:23 AM CDClaudia Gonzales RN Intravenous Therapy/Heparin/Saline Lock 20 11/15/2023 8:23 AM Ab david Roque RN Gait/Transferring 0 11/15/2023 8:23 AM Claudia Roque RN Mental Status 0 11/15/2023 8:23 AM CDT Claudia Negron, RN Coker Fall Risk Score (Score >= 45 places fall precaution order) 35 11/15/2023 8:23 AM Claudia Roque RN Prior Fall Event (Autopopulated from EMR) None found 11/15/2023 8:23 AM CDT Katja Lugo RN * Gab Scale Question Answer Date of Assessment Author Sensory Perceptions 4 11/15/2023 8:23 AM CD Claudia Perera, RN Moisture 4 11/15/2023 8:23 AM Claudia Roque RN Activity 3 11/15/2023 8:23 AM CDClaudia Perera RN Mobility 3 11/15/2023 8:23 AM Claudia Roque RN Nutrition 3 11/15/2023 8:23 AM CHESTERT Claudia Lugo RN Friction and Shear 3 11/15/2023 8:23 AM Claudia Roque RN Gab Scale Score 20 11/15/2023 8:23 AM Claudia Roque RN * Question Answer Date of Assessment Author BP Method Automatic 11/15/2023 11:37 AM CDT Nahomy Lassiter MAP (mmHg) 77 11/15/2023 11:37 AM CDT Nahomy Lassiter * Question Answer Date of Assessment Author BP Location Left arm 04/08/2025 9:56 AM CDT Silva Lo, CRISTÓBAL * Fall Risk Interventions Question Answer Date of Assessment Author All Low Fall Interventions Applied Yes 11/15/2023 8:23 AM Claudia Roque RN All Moderate Fall Interventions Applied No 11/15/2023 8:23 AM Claudia Roque RN All Moderate Fall Risk Interventions EXCEPT: PT eval requested or obtained;OT eval requested or obtained 11/15/2023 8:23 AM Claudia Roque RN All High Fall Risk Interventions Applied No 11/14/2023 10:20 PM CHESTERT Linh Coleman RN All High Risk Interventions EXCEPT: Bed alarm;Chair alarm 11/14/2023 9:19 PM CDT Samia Scruggs RN Reason For Exception(s) pt demonstrates steady gait 11/15/2023 8:23 AM Claudia Roque RN Reason For Exception(s) pt demonstrates steady gait, A&Ox4, calls out appropriately 11/14/2023 9:19 PM Samia Menard RN * B.M.A.T. - Bedside Mobility Assessment Tool for Nurses Question Answer Date of Assessment Author Is patient able to participate in the BMAT? Yes 11/15/2023 8:23 AM Katja Roque RN BMAT Level Level 4 - Green 11/15/2023 8:23 AM Claudia Davis RN * Question Answer Date of Assessment Author 1. Has the patient self-reported, presented with clinical signs of, or have a documented history of any of the following within the past 30 days? No 11/14/2023 9:19 PM Samia Menard, GERRI * Question Answer Date of Assessment Author Is the patient being treated today because it is known or suspected that they prepared, started, or tried to end their life? No 11/14/2023 9:19 PM Samia Menard RN * Question Answer Date of Assessment Author 1. In the past month, have y ou wished you were or that you could go to sleep and not wake up? No 11/14/2023 9:19 PM Samia Menard RN 2. In the past month, have y ou actually had any thoughts of killing yourself? No 11/14/2023 9:19 PM Samia Menard RN 6. Have you ever done anythi ng, started to do anything, or prepared to do anything to end your life? No 11/14/2023 9:19 PM Samia Menard RN * Suicide Risk Level Answer Date of Assessment Author No risk level 11/14/2023 9:19 PM Yadira Menard RN * Self-Injurious Risk Level Answer Date of Assessment Author No risk level 11/14/2023 9:19 PM Yadira Menard RN * Alcohol Withdrawal BP Hierarchy Answer Date of Assessment Author 73 12/18/2022 1:13 PM Gregg Larry L., RMA * Pressure Injury Prevention Question Answer Date of Assessment Author Pressure Ulcer Prevention Interventions Keep skin clean and dry (Sensory Perception/Moisture ) 11/15/2023 8:23 AM CHESTERT Claudia Lugo RN 2 Nurse Skin Assessment Linh Coleman RN 11/14/2023 9: 19 PM CHESTERT Samia Scruggs RN * Transdermal Patch Assessment on Admission Answer Date of Assessment Author Not Present 11/14/2023 9:19 PM CDT Yadira Scruggs RN * AUDIT-C Score Answer Date of Assessment Author 1 12/19/2023 9:55 AM My Layne RN * Alcohol Use Question Answer Date of Assessment Author Q1: How often do you have a drink containing alcohol? Monthly or less 12/19/2023 9:55 AM My Layne RN Q2: How many drinks containing alcohol do you have on a typical day when you are drinking? Patient does not drink 06/22/2024 2:18 PM GOODWILL REPRESENTATIVE Karen Zhou CMA Q3: How often do you have six or more drinks on one occasion? Never 12/19/2023 9:55 AM My Layne RN * Fall Risk Assessment Tool - MEDFRAT Question Answer Date of Assessment Author Prior Fall Event (Autopopulated from EMR) None found 11/14/2023 5:09 PM Darleen Reyes RN History of falling in last 3 months, including since admission 2 11/14/2023 5:09 PM Darleen Reyes RN Confusion or disorientation 0 11/14/2023 5: 09 PM Darleen Reyes RN Intoxicated or sedated 0 11/14/2023 5:09 PM Darleen Reyes RN Impaired gait 0 11/14/2023 5:09 PM Darleen Leon RN Mobility assist device used 0 11/14/2023 5: 09 PM Darleen Reyes RN Altered elimination 0 11/14/2023 5:09 PM CHESTER T Darleen Chan RN Fall risk score: (1-2 low risk), (3-4 moderate risk), (5 or more high risk) 2 11/14/2023 5:09 PM CDT Darleen Chan , GERRI * Integumentary Additional Assessments Answer Date of Assessment Author Yes-Gab 11/14/2023 9:19 PM CDT Yadira Scruggs RN * Integumentary Question Answer Date of Assessment Author Skin Color Appropriate for ethnicity 11/15/2023 8:23 AM CHESTERT Claudia Lugo RN Skin Condition/Temp Warm;Dry 11/15/2023 8:23 AM Claudia Wilder RN Skin Integrity Redness;Surgical incision;Puncture 11/15/2023 8:23 AM CHESTERT Claudia Lugo RN Skin Turgor Non-tenting 11/15/2023 8:23 AM CHESTERT Claudia Lugo RN Integumentary (WDL) X 11/15/2023 8:23 AM Claudia Wilder RN Skin Location Chest - B/L Mast. si te, R breast biopsy site 11/15/2023 8:23 AM CDT Claudia Lugo RN * Gab Scale Question Answer Date of Assessment Author Gab Scale Used Gab 09/10/2023 12:30 PM GOODWILL REPRESENTATIVE Dahiana Hitchcock, RN * Question Answer Date of Assessment Author Percent Meal Eaten (%) 0 09/11/2023 9:20 AM GOODWILL REPRESENTATIVE Gama Serrano, RN * Question Answer Date of Assessment Author BP Method Automatic 11/15/2023 11:37 AM CDT Nahomy Lassiter * Question Answer Date of Assessment Author BP Location Left arm 04/08/2025 9:56 AM CDT Silva Lo CMA * Fall Risk Interventions Question Answer Date of Assessment Author All Low Fall Interventions Applied Yes 11/15/2023 8:23 AM Claudia Roque RN All Moderate Fall Interventions Applied No 11/15/2023 8:23 AM CHESTERT Claudia Lugo RN All Moderate Fall Risk Interventions EXCEPT: PT eval requested or obtained;OT eval requested or obtained 11/15/2023 8:23 AM Claudia Roque RN All High Fall Risk Interventions Applied No 11/14/2023 10:20 PM Linh King RN All High Risk Interventions EXCEPT: Bed alarm;Chair alarm 11/14/2023 9:19 PM Samia Menard RN Reason For Exception(s) pt demonstrates steady gait 11/15/2023 8:23 AM Claudia Roque RN Reason For Exception(s) pt demonstrates steady gait, A&Ox4, calls out appropriately 11/14/2023 9:19 PM Samia Menard RN * ADL Screening Question Answer Date of Assessment Author Patient's Vision Adequate to Safely Complete Daily Activities Yes 11/14/2023 9:19 PM Samia Menard RN Patient's Judgement Adequate to Safely Complete Daily Activities Yes 11/14/2023 9:19 PM Samia Menard RN Patient's Memory Adequate to Safely Complete Daily Activities Yes 11/14/2023 9:19 PM Samia Menard RN Patient Able to Express Needs/Desires Yes 11/14/2023 9:19 PM Samia Menard RN Dressing Independent 11/14/2023 9:19 PM Samia Verdin RN Grooming Independent 11/14/2023 9:19 PM Samia Verdin RN Feeding Independent 11/14/2023 9:19 PM Samia Verdin RN Bathing Independent 11/14/2023 9:19 PM Samia Verdin RN Toileting Independent 11/14/2023 9:19 PM Samia Verdin RN In/Out Bed Independent 11/14/2023 9:19 PM Samia Verdin RN Walks in Home Independent 11/14/2023 9:19 PM Samia Jimenez, RN Weakness of Legs None 11/14/2023 9:19 PM CDT C homko, Winslow R., RN Weakness of Arms/Hands None 11/14/2023 9:19 PM Samia Menard RN Hearing - Right Ear Functional 11/14/2023 9:19 PM Samia Alvarez RN Hearing - Left Ear Functional 11/14/2023 9:19 PM Samia Menard RN Dominant hand? Right 11/14/2023 9:19 PM Samia Duggan RN Decline in ADLs in last 2 weeks? No 11/14/2023 9:19 PM Samia Menard RN * Therapy Consults Question Answer Date of Assessment Author PT Evaluation Needed 2 11/14/2023 9:19 PM Samia Acosta RN OT Evaluation Needed 2 11/14/2023 9:19 PM C Samia Ricci RN NETTING INSPECTOR Evaluation Needed 2 11/14/2023 9:19 PM Samia eMnard RN * Assistive Devices Question Answer Date of Assessment Author Assistive Devices/DME Eyeglasses;CPAP/Bi PA P;Dentures upper 11/14/2023 9:19 PM Samia Menard RN * Question Answer Date of Assessment Author Bed In Lowest Position Yes 09/11/2023 11:13 A M Gama Hadley RN Bed Wheels Locked Yes 09/11/2023 11:13 AM Gama Hadley RN * Hygiene Question Answer Date of Assessment Author Hygiene Level of Assistance Independent 11/14/2023 10:20 PM Linh King, GERRI Toileting: Level of assistance Independent 11/14/2023 10:20 PM Linh King, GERRI Linens Bed pad changed 09/10/2023 4:00 PM Do Overton RN Bath Not bathed/showered 11/15/2023 12:10 PM Claudia Schmidt RN documented as of this encounter Mental Status * Question Answer Entry Date Author Level of Consciousness Alert;Awake 09/11/2023 8:35 AM Gama Hadley RN * Question Answer Entry Date Author Orientation Oriented X4 (person, place, time, situation) 09/11/2023 9:03 AM GOODWILL REPRESENTATIVE Cecilia Weinberg * Question Answer Entry Date Author Neuro (GRACIEL) WDL 11/15/2023 8:23 AM CDT Claudia Lugo RN * Short Blessed Test Question Answer Entry Date Author What year is it now? 0 09/11/2023 9:03 AM C Cecilia Arteaga What month is it now? 0 09/11/2023 9:03 AM Cecilia Reyes Without looking at the clock, tell me what time it is 0 09/11/2023 9:03 AM Cecilia Reyes Count aloud backwards from 20-1 0 09/11/2023 9:03 AM Cecilia Reyes Say the months of the year backwards in reverse order 0 09/11/2023 9:03 AM Ang Reyes e Repeat the name and address I asked you to remember 0 09/11/2023 9:03 AM Cecilia Reyes Repeat this name and address after me Harley Doyle [address] [place] [address] 09/11/2023 9:03 AM Cecilia Reyes Short Blessed Total Score 0 09/11/2023 9:03 AM GOODWILL REPRESENTATIVE Cecilia Weinberg Short Blessed Comments WNL 09/11/2023 9:03 AM Cecilia Reyes * Question Answer Entry Date Author Neuro (WDL) X 09/10/2023 12:30 PM GOODWILL REPRESENTATIVE Shay iff, Dahiana Wilkes RN documented in this encounter Plan of Treatment Not on file documented as of this encounter Procedures Procedure Name Priority Date/Time Associated Diagnosis Comments BREAST IMAGING MG SCREENING OUTSIDE REFERENCE Routine 02/25/2018 12:00 AM CDT documented in this encounter Results * Breast Imaging Screening Outside Reference (02/25/2018 12:00 AM CDT) Impressions [facility] - 06/17/2023 10:02 AM GOODWILL REPRESENTATIVE These images are for Reference purposes only and have not been reviewed by [facility]iology. There will be no report generated by a [facility] Radiologist. Narrative [facility] - 06/17/2023 10:02 AM GOODWILL REPRESENTATIVE EXAMINATION: Images For Reference Purposes Only us Toya Coles MD PhD IMG MAMMO PROCEDURES Final Result [facility] documented in this encounter Visit Diagnoses Not on filedocumented in this encounter Care Teams Coat Joiner Lockstitch Relationship Specialty Start Date End Date Guillermo Thomas MD PCP - General 04/04/17 11/14/22 documented as of this encounter
--- OUTSIDE RECORDS SUMMARY | 2020-03-23 23:00 | XMS_ITS | Encounter Summary ---
Author Organization [facility] Healthcare Address [address] [place] [address] Care Team Providers Care Willow Machine Operator Name Role Phone Guillermo Thomas MD Primary Care Provider [phone] Reason for Visit * Diagnostic Imaging (Routine) - Closed Specialty Diagnoses / Procedures Referred By Savannah lucio Referred To Contact Procedures Breast Imaging Screening Outside Reference Aft, Toya Anthony MD PhD [address] [place] [address] Phone: tel: fax: Referral ID Status Reason Start Date Expiration Date Visits Re quested Visits Authorized [id number] Closed 06/17/2023 07/16/2024 1 1 Encounter Details Date Type Department Care Team (Late st Contact Info) Description 03/24/2020 Hospital Encounter [facility] [address] [place] [address] [phone] Social History Tobacco Use Types Packs/Day Years [...] on file Legal Sex Female 12:40 AM SOLAR MANUFACTURER'S REPRESENTATIVE Gender Identity Not on file Sexual [...] or get rid of a hangover? Eye ship fastener? 0 11/14/2023 9:24 PM Jasvir Menard RN [...] Patient does not drink 06/22/2024 2:18 PM SOLAR MANUFACTURER'S REPRESENTATIVE Karen Zhou CMA Q3: How often [...] Gab Scale Used Gab 09/10/2023 12:30 PM SOLAR MANUFACTURER'S REPRESENTATIVE Dahiana Hitchcock, RN * Question Answer Date of Assessment Author Percent Meal Eaten (%) 0 09/11/2023 9:20 AM SOLAR MANUFACTURER'S REPRESENTATIVE Gama Serrano, RN * Question Answer [...] None 11/14/2023 9:19 PM CDT C homko, [place] R., RN Weakness of Arms/Hands None 11/14/2023 [...] 11/14/2023 9:19 PM C Samia Ricci RN DISPUTE COORDINATOR Evaluation Needed 2 11/14/2023 9:19 PM Samia Menard RN * Assistive Devices Question Answer Date [...] (person, place, time, situation) 09/11/2023 9:03 AM SOLAR MANUFACTURER'S REPRESENTATIVE Cecilia Weinberg * Question Answer Entry [...] in reverse order 0 09/11/2023 9:03 AM SOLAR MANUFACTURER'S REPRESENTATIVE Ang Weinberg e Repeat the name and address I asked you to remember 0 09/11/2023 9:03 AM Cecilia Reyes Repeat this name and address after me Harley Doyle [address] [place] [address] 09/11/2023 9:03 AM Cecilia Reyes Short Blessed Total Score 0 09/11/2023 9:03 AM SOLAR MANUFACTURER'S REPRESENTATIVE Cecilia Weinberg Short Blessed Comments WNL 09/11/2023 9:03 AM Cecilia Reyes * Question Answer Entry Date Author Neuro (WDL) X 09/10/2023 12:30 PM SOLAR MANUFACTURER'S REPRESENTATIVE Shay iff, Dahiana Wilkes RN documented in this encounter Plan of Treatment Not on file documented as of this encounter Procedures Procedure Name Priority Date/Time Associated Diagnosis Comments BREAST IMAGING MG SCREENING OUTSIDE REFERENCE Routine 03/24/2020 12:00 AM CDT documented in this encounter Results * Breast Imaging Screening Outside Reference (03/24/2020 12:00 AM CDT) Impressions [facility] - 06/17/2023 10:04 AM SOLAR MANUFACTURER'S REPRESENTATIVE These images are for Reference purposes only and have not been reviewed by [facility] Radiology. There will be no report generated by a [facility] Radiologist. Narrative [facility] - 06/17/2023 10:04 AM SOLAR MANUFACTURER'S REPRESENTATIVE EXAMINATION: Images For Reference Purposes Only us Toya Coles MD PhD IMG MAMMO PROCEDURES Final Result [facility] documented in this encounter Visit Diagnoses Not on filedocumented in this encounter Care Teams Willow Machine Operator Relationship Specialty Start Date End Date Guillermo Thomas MD PCP - General 04/04/17 11/14/22 documented as of this encounter
--- OUTSIDE RECORDS SUMMARY | 2025-05-24 12:26 | XMS_ITS | Clinical Summary ---
Author Organization [facility] Address [address] [place] [address] Care Team Providers Care Cake Former Name Role Phone Jeanna Valdes MD Primary Care Provider [phone] AfToya lucio MD PhD Unavailable [phone] Weston Hager MD Unavailable Nitin Angeles MD Unavailable [phone] Allergies Active Allergy Reactions Criticality Noted Date [...] 1 tablet (25 mcg total) by mouth patient service coordinator before breakfast 3 Active mirtazapine (REMERON) 15 [...] Active Problems Problem Noted Date Diagnosed Date detention (current) use of aromatase inhibitors 08/13/2024 Osteopenia 08/13/2024 Wound infection after surgery 11/14/2023 Malignant neoplasm of female breast 09/10/2023 Dyspnea on exertion 06/27/2023 Malignant neoplasm of right female breast 2022 Cancer Staging:Clinical:Stage IB(cT1c(4), cN1, cM0, G2, ER+, NV+, HER2-, Oncotype DX score: 4) - Signed by Kevon Huang MD on 12/15/2023 Asthma, persistent not controlled 12/21/2022 Wheezing Encounters Date Type Department Care Team Description 04/13/2025 Telephone [facility] Medicine Oncology [address] [place] [address] [address] [place] [address] Nitin Angeles MD 04/13/2025 [facility]phone [facility] [address] [place] [address] 8 [place] [address] Nitin Angeles MD 04/09/2025 Orders Only [facility] [address] [place] [address] 8 [place] [address] Nitin Angeles MD 04/08/2025 12:00 PM CDT Infusion [facility] - Infusion [address] [facility] Floor 5 [place] [address] Malignant neoplasm of right female breast, unspecified estrogen receptor status, unspecified site of breast (HCC) (Primary Dx); Osteopenia, unspecified location; buttermaker (current) use of aromatase inhibitors 04/08/2025 11:30 AM CDT Clinical Support [facility] - Lab Collection [facility] Floor 5 [place] [address] Hypercalcemia 04/08/2025 10:40 AM CDT Office Visit [facility] Medicine Oncology [address] [facility] Floor 8 [place] [address] Nitin Angeles MD Malignant neoplasm of right female breast, unspecified estrogen receptor status, unspecified site of breast (HCC) (Primary Dx); Osteopenia, unspecified location; detention (current) use of aromatase inhibitors; Hypercalcemia 04/08/2025 9:45 AM CDT Lab [facility] - Lab Collection [address] [place] [address] Floor 5 [place] [address] Osteopenia, unspecified location; detention (current) use of [...] BX performed by Yogi Eddy MD at [facility] OR TONSILLECTOMY 07/15/1954 - 07/14/1955 HYSTERECTOMY 07/15/1991 [...] on file Legal Sex Female 12:40 AM 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 Gender Identity Not on file Sexual Orientation [...] 2014 Fall Risk Assessment 12/18/2024 12/19/2023, 11/15/19 Covid-19 Vaccine (2024-2 6 season) 2025 05/16/2022, 07/22/2021, 09/07/2020, Additional history exists Influenza Vaccine (#1) 2025 , 04/12/2021, 04/30/2019, Additional history exists Osteoporosis Screening-Bone Density Scan 12/25/2025 12/26/2023, 01/27/2021 Pneumococcal vaccine 65+ Completed 02/21/2021, 05/16 Breast Cancer Screening-Mammogram Discontinued 05/15/2023, 05/18/2021, 03/24/2020 Medical Devices Implanted Type Area Fire Boat Engineer Device Identifier Shelf Expiration Date Model / Serial / Lot [id number] [employer] Magtrace Liquid Marker 10 Vial Carton [id number] - [id number] Implanted:Qty : 1 on 09/10/2023 by Toya Coles MD PhD at [facility] Other - see comments Right: Breast [employer] 12/13/2024 [id number] / [id number] Description:Magtrace Bard Peripheral Vascular Marker Breast Ring Shape Radiopaque Nitinol Ultracor Twirl [id number] - [id number] Implanted:Qty : 1 on 07/04/2023 at [facility] Right: Axilla Bard Peripheral Vascular [id number] / / [employer] Marker Tissue Needle Delivery Spiral Capped Seed Radiopaque Usp Stainless Steel Low Nickel Sentimag [id number] - [id number] Implanted:Qty : 1 on 08/07/2023 by Tammy Prado MD at [facility] Right: Axilla [employer] [id number] 01/11/2027 [id number] / [id number] Procedures Procedure Name Priority Date/Time Associated Diagnosis Comments PTH Routine 04/08/2025 11:34 AM CDT Hypercalcemia TSH STAT 04/08/2025 9:45 AM CDT Osteopenia, unspecified location buttermaker (current) use of aromatase inhibitors Malignant neoplasm of right female breast, unspecified estrogen receptor status, unspecified site of breast (HCC) T4, FREE STAT 04/08/2025 9:45 AM CDT Osteopenia, unspecified location buttermaker (current) use of aromatase inhibitors Malignant neoplasm of right female breast, unspecified estrogen receptor status, unspecified site of breast (HCC) EGFR STAT 04/08/2025 9:45 AM CDT Osteopenia, unspecified location buttermaker (current) use of aromatase inhibitors Malignant neoplasm [...] 4 AM CDT 04/08/2025 12:34 PM CDT us Nitin Angeles MD LAB BLOOD ORDERABLES Final Result [facility] Department [place] [address] * (ABNORMAL) eGFR (04/08/2025 9:45 AM CDT) [...] Angeles MD LAB BLOOD ORDERABLES Final Result [facility] Department [place] [employer] [place] [address] * TSH (04/08/2025 9:45 AM CDT) Thyroid Stimulating Hormone 3.36 0.30 - 4.20 mcIUnit/mL Blood 04/08/2025 9:45 AM CDT 04/08/2025 9:47 AM CDT Nitin Angeles MD LAB BLOOD ORDERABLES Final Result [facility] [place] [place] [address] * T4, free (04/08/2025 9:45 AM CDT) Free T4 1.00 0.90 - 1.70 ng/dL Blood 04/08/2025 9:45 AM CDT 04/08/2025 9:47 AM CDT us Nitin Angeles MD LAB BLOOD ORDERABLES Final Result [facility] Department [place] [address] * (ABNORMAL) Comprehensive metabolic panel (04/08/2025 9:45 AM CDT) Sodium 142 135 - 145 mmol/L Potassium, pl 4.6 3.3 - 4.9 mmol/L [facility] Chloride 106 97 - 110 mmol/L [facility] CO2 23 22 - 32 mmol/L [facility] Anion gap 13 2 - 15 mmol/L [facility] BUN 21 6 - 25 mg/dL [facility] Creatinine 1.15(H) 0.60 - 1.10 mg/dL [facility] Glucose 101 70 - 199 mg/dL [facility] Comment: Interpretive Data Fasting glucose >/= 126 [...] 2022. Calcium 10.7(H) 8.5 - 10.3 mg/dL [facility] Bilirubin, total 0.5 0.1 - 1.2 mg/dL [facility] Protein, pl 8.5 6.5 - 8.5 g/dL [facility] Albumin 4.3 3.5 - 5.0 g/dL [facility] Alk phos 108 40 - 130 Units/L [facility] ALT 23 7 - 45 Units/L [facility] AST 33 10 - 45 Units/L [facility] Blood 04/08/2025 9:45 AM CDT 04/08/2025 9:47 AM CDT Nitin Angeles MD LAB BLOOD ORDERABLES Final Result [facility] Department [place] [address] from Last 3 Months Insurance [facility] MEDICARE SUPPLEMENT MEDICARE MEDICARE [facility] [employer] MEDICARE SUPPLEMENT Advance Directives For more information, please contact: [phone] * Full Code (Latest Code Status on File) Date Activated Date Inactivated Comments 11/14/2023 9:22 PM 11/15/2023 5:54 PM * Full Code Date Activated Date Inactivated Comments 09/10/2023 1:59 PM 09/11/2023 4:21 PM Care Teams Cake Former Relationship Specialty Start Date End Date Jeanna Valdes MD [address] [place] [address] [place] [address] PCP - General Family Medicine 11/15/22 Aft, Toya Anthony MD PhD [address] [facility] [place] [address] Surgeon Surgical Oncology 09/11/23 Weston Hager MD [address] [facility] [address] [place] [address] Radiation Oncologist Radiation Oncology 12/19/23 Nitin Angeles MD [address] [place] [address] Medical Oncologist/Painter Sign Maintenance Medical Oncology 12/19/23
--- OUTSIDE RECORDS SUMMARY | 2025-05-24 12:26 | XMS_ITS ---
Author Organization [facility] Address [address] [place] [address] Care Team Providers Care Diesel Engine Mechanic Name Role Phone Jeanna Valdes MD Primary Care Provider [phone] Aft, Toya Anthony MD PhD Unavailable [phone] Weston Hager MD Unavailable Nitin Angeles MD Unavailable [phone] Active Problems Problem Noted Date Diagnosed Date [facility] (current) use of aromatase inhibitors 08/13/2024 Osteopenia 08/13/2024 Wound infection after surgery 11/14/2023 Malignant neoplasm of female breast 09/10/2023 Dyspnea on exertion 06/27/2023 Malignant neoplasm of right female breast 2022 Cancer Staging:Clinical:Stage IB(cT1c(4), cN1, cM0, G2, ER+, MD+, HER2-, Oncotype DX score: 4) - Signed [...]
--- OUTSIDE RECORDS SUMMARY | 2025-05-24 12:26 | XMS_ITS | Clinical Summary ---
Author Organization [facility] Address [address] [place] [address] Care Team Providers Care Nurse Tech Name Role Phone Jeanna Valdes MD Primary Care Provider Allergies Active Allergy Reactions Criticality Noted Date Comments Penicillin V Rash High 11/22/2014 Penicillins Rash,Syncope Low 03/25/2020 Medications FLUoxetine 40 MG capsule Take 1 capsule (40 mg total) by mouth daily. 11/16/19 20 Active amLODIPine 5 MG tablet Take 1 tablet (5 mg total) by mouth daily. 05/23/20 20 Active losartan 100 MG tablet Take 1 tablet (100 mg total) by mouth nightly at bedtime. 12/09/19 21 Active Cyanocobalamin (VITAMIN B-12) 1000 MCG SL TabIndications:Typ e 2 diabetes mellitus with diabetic polyneuropathy, without long-term current use of insulin ([facility]) Place 1 tablet under the tongue daily. 90 tablet 08/10/19 22 Active vitamin D3, cholecalciferol, (VITAMIN D) 1000 UNIT Tab tabletIndications: Mixed hyperlipidemia Take 1 tablet (1,000 Units total) by mouth daily. 30 tablet 08/10/19 22 Active aspirin 81 MG chewable tabletIndications: Type 2 diabetes mellitus with diabetic polyneuropathy, without long-term current use of insulin ([facility]) Chew 1 tablet (81 mg total) by mouth daily. 30 tablet 08/10/19 22 Active Glucose Blood (FREESTYLE LITE) test stripIndications:T ype 2 diabetes mellitus with diabetic polyneuropathy, without long-term current use of insulin ([facility]/HCC) 1 strip by Other route daily. Use as instructed 50 strip 4 05/29/20 23 Active miconazole (MICOTIN) 2 % cream Apply topically 2 (two) times daily. APPLY TO AFFECTED AREA Active mirtazapine (REMERON) 15 MG tablet Take 1 tablet (15 mg total) by mouth nightly at bedtime. Active letrozole (FEMARA) 2.5 MG tablet Take 1 tablet by mouth daily. Active budesonide-formote rol (SYMBICORT) 80-4.5 MCG/ACT inhaler Inhale 2 puffs into the lungs 2 (two) times daily. Active levothyroxine (SYNTHROID) 50 MCG tabletIndications: Subclinical hypothyroidism TAKE 1 TABLET BY MOUTH EVERY DAY IN THE MORNING 90 tablet 3 04/12/20 25 Active tirzepatide (MOUNJARO) 7.5 MG/0.5ML injectionIndicatio ns:Diabetes Mellitus Inject 7.5 mg into the skin once a week. Indications: Diabetes 6 mL 3 04/28/20 25 Active inclisiran (LEQVIO) injectionIndicatio ns:Age-related osteoporosis without current pathological fracture Inject 1.5 mLs (284 mg total) into the skin every 6 (six) months. 1.5 mL 05/12/20 25 Active tirzepatide (MOUNJARO) 7.5 MG/0.5ML injectionIndicatio ns:Diabetes Mellitus Inject 7.5 mg into the skin once a week. Indications: Diabetes 2 mL 04/21/20 25 025 Discontin ued(Reord er) Active Problems Problem Noted Date Diagnosed Date Closed right hip fracture 04/10/2024 Encounters Date Type Department Care Team Description 05/06/2025 Telephone [facility] Diabetes and Endocrinology [address] [place] [address] Sharla Solo MD Lab Results 05/03/2025 Telephone [facility] Diabetes and Endocrinology [address] [place] [address] Marina Gonzales MD Lab Results 04/28/2025 10:40 AM CDT Office Visit [facility] Diabetes and Endocrinology [address] [phone] Marina Gonzales MD Type 2 Diabetes; Hypothyroidism 04/28/2025 Telephone [facility] Diabetes and Endocrinology [address] [phone] Marina Gonzales MD Imm/Inj (Leqvio) 04/28/2025 Telephone [facility] Diabetes and Endocrinology [address] [address] Marina Gonzales MD Lab Results 04/28/2025 Travel 04/16/2025 Telephone [facility] Diabetes and Endocrinology [address] [address] Marina Gonzales MD Medication Request (Pt asking if script on Mounjaro can be increased to next level.) 04/08/2025 Scan [employer] INFO SRVCS Scanned, [facility] Lab (SCAN) from Last 3 Months Immunizations Immunization Administration Dates Next Due Influenza (Generic) 04/30/2019,06/12/2016,2011 Pneumococcal (Prevnar 13) 06/12/2016 Family History Medical History Relation Comments CABG Brother Breast Cancer Daughter Her2 positive, d daisy CABG Father Open Heart Father Stroke Mother heart issues Mother pacemaker Sister Relation Status Comments Brother Daughter Father First heart sharon ck in his 50's Mother Sister Social History Tobacco Use Types Packs/Day Years Used Date Smoking Tobacco: Never Smokeless Tobacco: Never Tobacco Cessation:Counseling Given: No Alcohol Use Standard Drinks/Week Comments Not Currently 0 (1 standard drink = 0.6 oz pur e alcohol) [facility] Utilities Answer Date Recorded In the past 12 months has e m-spatial, gas, oil, or water SET threatened to shut off services in your [...] Date Recorded Patient Health Questionnaire-2 Score 0 04/28/2025 Hunger Vital Sign Answer Date Recorded Within [...] any time in the past 12 m [facility], were you homeless or living in a long term (including now)? No 04/11/2024 Comments No Sex and Gender Information Value Date Recorded Sex Assigned at Not on file Legal Sex Female 5:09 PM CDT Gender Identity Not on file Sexual Orientation Not on file Last Filed Vital Signs Vital Sign Reading Time Taken Comments Blood Pressure 130/80 04/28/2025 10:38 AM CDT Pulse 73 04/28/2025 10:38 AM CDT Temperature 36.4 C (97.5 F) 04/28/2025 10:38 AM CDT Respiratory Rate 16 04/16/2024 11:16 PM CDT Oxygen Saturation 98% 04/28/2025 10:38 AM CDT Inhaled Oxygen Concentration - - Weight 93.6 kg (206 lb 6.4 oz) 04/28/2025 10:38 AM CDT Height 167.6 cm (5' 6) 04/28/2025 10:38 AM CDT Body Mass Index 33.31 04/28/2025 10:38 AM CDT Plan of Treatment Upcoming Encounters Date Type Department Care Team (Late st Contact Info) Description 07/30/2025 10:20 AM PLASTICS BENCH MECHANIC Office Visit [facility] Diabetes and Endocrinology - [place] [address] [place] [address] Marina Gonzales MD [address] [facility] [place] [address] Health Maintenance Due Date Last Done Comments Kidney Health Evaluation 1950 Diabetes: Retinopathy Eye Exam 1967 Hepatitis C 1967 DTaP, Tdap and Td Vaccines (1 - Tdap) 02/20/1968 Zoster Vaccines (1 of 2) 1999 Annual Medicare Wellness Visit 2014 RSV Immunization or 60+ Years (1 - 1-dose 75+ series) 02/20/2024 Lipid Panel 02/27/2025 02/28/2024, 04/2 02/2023, 02/05/2022, Additional history exists COVID-19 Vaccine ( - season) 2025 09/07/2020, 08/17/2020 Influenza Adult (#1) 2025 04/12/2021, 04/30/2019, 06/12/2016, Additional history exists Hemoglobin A1C 10/27/2025 04/28/2025, 02/12, 11/22/2023, Additional history exists Pneumococcal Vaccine: 50+ Years Completed 02/21/2021, 06/12/2016 Colorectal Cancer Screening Colonoscopy (10 Years) Discontinued 04/28/2021, 04/28/2021 Dexa Scan (General) Completed 12/26/2023, 07/16/202 1 PHQ-2 (Physician [place]) Completed 04/28/2025 Hepatitis A Vaccines Aged Out No long er eligible based on patient's age to complete this topic Meningococcal B Vaccine Aged Out No l [...] Mario, GERRI Medical Devices Implanted Type Area Mason Liner Device Identifier Shelf Expiration Date Model / Serial / Lot Lag Screw Implanted:Qty: 1 on 04/11/2024 by Sonam North MD at [facility] Screw [employer] [id number] 08/01/2033 8145-10-1 05 / / [id number] Cortical Screw Implanted:Qty: 1 on 04/11/2024 by Sonam North MD at [facility] Screw Right: Leg [employer] [id number] 01/24/2033 8145-50-0 54 / / [id number] Agent Hemostatic Surgiflo 8 Ml Kit - [id number] Implanted:Qty: 1 on 04/11/2024 by Sonam North MD at [facility] Sealant Right: Hip [employer] 11/11/2024 [id number] / / Hip Fracture Nail Implanted:Qty: 1 on 04/11/2024 by Sonam North MD at [facility] Right: Hip [employer] 02/17/2032 [id number] 00 / / Explanted Type Area Mason Liner Device Identifier Shelf Expiration Date Model / Serial / Lot Pin Steinmann Threaded - [id number] Explanted:Qty: 2 on 04/11/2024 by Sonam North MD at [facility] Pin Right: Hip [employer] [id number] / / Drill Explanted:Qty: 2 on 04/11/2024 by Sonam North MD at [facility] Right: Hip [employer] 09/11/[id number] / / Guide Pin Explanted:Qty: 2 on 04/11/2024 by Sonam North MD at [facility] Right: Hip [employer] 12/10/2033 [id number] / / Fracture Nail Explanted:Qty: 1 on 04/11/2024 by Sonam North MD at [facility] Right: Hip [employer] 10/24/2031 [id number] / / Description:Wasted wrong siz e Procedures Procedure Name Priority Date/Time Associated Diagnosis Comments COLLECT.CAPILLARY (FNGR,HEEL,EAR) Routine 04/28/2025 10:51 AM CDT Type 2 diabetes mellitus with microalbuminuria, without long-term current use of insulin ([facility]) HEMOGLOBIN, GLYCOSYLATED Routine 04/28/2025 Type 2 diabetes mellitus with microalbuminuria, without long-term current use of insulin ([facility]/HCC) GLUCOSE BLOOD, MONITOR DEVICE Routine 04/28/2025 Type 2 diabetes mellitus with microalbuminuria, without long-term current use of insulin ([facility]) OUTSIDE LAB (SCAN ORDER) 04/08/2025 LIPID PANEL Routine 02/28/2024 11:35 AM CDT Mixed hyperlipidemia BONE DENSITY/DEXA Routine 12/26/2023 1:3 0 PM CDT Malignant neoplasm of right female breast COLONOSCOPY 04/28/2021 7:56 AM CDT from Last 3 Months or Most Recently Relevant to Health Maintenance Results * A1C (BACK OFFICE) (04/28/2025) HGB A1C 5.6 % MG-[facility] [address] [facility] 04/28/2025 us Marina Poola MD LABORATORY Final Result [address], [address] [address], * GLUCOSE, BLOOD FINGERSTICK (04/28/2025) GLUCOSE WHOLE BLOOD 98 70 - 100 mg/dL [facility] [address] [place] 04/28/2025 Marina Gonzales MD LABORATORY Final Result Performing Organization Address City/[facility] Co de Phone Number [address], [address] [address], * OUTSIDE LAB (SCAN ORDER) (04/08/2025) 04/08/2025 [facility] Scanned SCANNING Final Resu lt * (ABNORMAL) LIPID PANEL (02/28/2024 11:35 AM CDT) CHOLESTEROL 302 MG/DL 02/29/2024 5:55 PM CDT [facility] Comment:HIGH: > OR = 240 TRIGLYCERIDES 224 MG/DL 02/29/2024 5:55 PM CDT [facility] Comment:200-499 HIGH HDL 30(L) >49 MG/DL 02/29/2024 5:55 PM CDT [facility] LDL-C 227 MG/DL 02/29/2024 5:55 PM CDT [facility] Comment:>189 VERY HIGH VLDL CALCULATION 45 MG/DL 02/29/20 5:55 PM CDT [facility] Comment:REFERENCE RANGE NOT ESTABLISHED CHOL/HDL RATIO 10.1 02/29/2024 5:55 PM CDT [facility] Comment:REFERENCE RANGE NOT ESTABLISHED LDL/HDL 7.6 02/29/2024 5:55 PM CDT [facility] Comment:REFERENCE RANGE NOT ESTABLISHED NON HDL CHOLESTEROL 272 MG/DL 02/29/2024 5:55 PM CDT [facility] Comment:REFERENCE RANGE NOT ESTABLISHED 02/28/2024 11:3 5 AM CDT Marina Gonzales MD LABORATORY Final Result [facility] [address] [place] [address], [id number] * BONE DENSITY/DEXA (12/26/2023 1:30 PM CDT) [...] Result * COLONOSCOPY (04/28/2021 7:56 AM CDT) Yogi Eddy MD GI PROCEDURE ORDERABLES Final Result from Last 3 Months or Most Recently Relevant to Health Maintenance Insurance MEDICARE [facility] Advance Directives * Full Code (Latest Code Status on File) Date Activated Date Inactivated Comments 04/10/2024 11:29 PM 04/17/2024 6:19 PM Care Teams Nurse Tech Relationship Specialty Start Date End Date Jeanna Valdes MD [address] [place] [address] PCP - General FAMILY PRACTICE 03/20/19
[2025-06-03 20:08] LABS: 1,25-Dihydroxy, Vitamin D-2 <10 pg/mL (.); 1,25-Dihydroxy, Vitamin D-3 32 pg/mL (.); Total 1,25-Dihydroxy,Vitamin D 32 pg/mL (.)
== END 2025-05-24 11:45 | disposition home or self-care (01) ==
LOC: CHSLAB 11:48
PROVIDERS: PCP Family Medicine
DX: E21.3 Hyperparathyroidism, unspecified (principal); E83.52 Hypercalcemia
CPT/HCPCS: 82652